=== PATIENT | male | born 1975 | race Caucasian/White ===

== ENCOUNTER → 2019-04-02 12:20 | Outpatient (CLI) | payer BC, SELFPAY | PROVIDERS: Visit Provider Nurse Practitioner Family | DX: G43.119 Migraine with aura, intractable, without status migrainosus (principal); R53.83 Other fatigue; Z86.69 Personal history of other diseases of the nervous system and sense organs | CPT/HCPCS: 94762 ==

== ENCOUNTER 2020-01-26 20:16 | Emergency (ER) | payer OTHER, SELFPAY ==
[2020-01-26 20:18] VITALS: BP 145/96; PULSE 94; RESP 18; TEMP 36.7; O2SAT 98; BMI 32.5
--- NOTE | 2020-01-26 20:23 | XR_ITS ---
PROCEDURE: XR HAND LT MIN 3V Patient Age:44Y CLINICAL INDICATION: crushed ring finger Left hand three views. COMPARISON: No exams were available for comparison FINDINGS: Crush tuft fracture 4th finger distal phalanx/distal tuft. Mild fragmentation is of distal tuft evident with fracture line passing through the base of the tuft nicely seen on lateral projection no significant displacement of fracture fragments but soft tissue swelling at tip of finger but the base of the distal phalanx intact but the remainder of the left ring finger intact. The other fingers and metacarpals and carpals at left hand and wrist intact and unremarkable otherwise IMPRESSION: Crush fracture of distal tuft left ring finger Dictated by: Moses Ruiz MD 01/26/2020 22:01 Electronically signed by Moses Ruiz MD in [place] 01/26/2020 22:01
--- NOTE | 2020-01-26 20:36 | HMH.EDUTC ---
[facility] Disposition Clinical Impression: Closed fracture of tuft of distal phalanx of finger Disposition: Home, Self-Care Condition on Discharge: Good Instructions: How To Perform RICE (Rest, Ice, Compress, Elevate) Additional Instructions: *RICE, Rest the extremity, Ice 15-20 minutes 3-4 times daily, Compress- wear the shan wrap as discussed as much as possible to help reduce swelling and pain, Elevate the extremity when at rest *Shan wrap is for support and help control swelling, use it except in the shower. Be sure that is not to tight but not to loose either *Elevate when resting *Ibuprofen every 6-8 hours as needed for pain an inflammation. If need something more can take Tylenol in between doses of Ibuprofen to help Immediately follow up with your family doctor for new or worsening of symptoms, or no noticeable improvement over the next 3-5 days Call Orthopedic office in the morning for appointment with Dr Reilly Return if needed Straight to ER if any life threatening symptoms Referrals: Coy Vance MD [Primary Care Provider] - As needed Reynaldo Reilly MD [Staff Physician] - Time of Disposition: 20:58 Medical Decision Making - Juan Inquiry Pt receiving controlled substance: No Juan was queried for this patient: No Vital Signs: 01/26/20 20:18 01/26/20 20:56 Temperature 98.1 F 98.1 F Temperature Source Oral Oral Pulse Rate 94 H Pulse Rate [Radial] 94 H Respiratory Rate 18 18 Blood Pressure 145/96 H Blood Pressure [Right Arm] 145/96 H Blood Pressure Mean [Right Arm] 112 Blood Pressure Source Automatic Cuff Blood Pressure Source [Right Arm] Automatic Cuff Blood Pressure Position Sitting Blood Pressure Position [Right Arm] Sitting 02 Sat by Pulse Oximetry 98 Oxygen Delivery Method Room Air Room Air Orders (Tests/Meds): ORDERS Category Date Time Status XR hand LT min 3V Stat Exams 01/26/20 20:23 Taken - Radiology Data #1 Image(s): Hand Image Reviewed: Yes I reviewed the patient's radiology image Closed Distal phalanx fracture of left ring finger - Physician Consults Physician Consulted: Tommie Time: 20:40 Reason -: Orthopedic Eval/Care Comment/Response: Spoke with Dr Reilly and he advised that he would view xray in the morning and bring him into the office Place patient in foam splint, RICE and follow up in the office [facility] HPI - General Stated complaint: smashed finger on L hand Time Seen by Provider: 01/26/20 20:36 Mode of Arrival: Ambulatory Source of Information: Patient Limitations: No Limitations Description of Symptoms (Recalled from Triage Doc. by RN): SMASHED FINGER HEENT Symptoms (Recalled from RN notes): No Resp Symptoms (Recalled from RN notes): No Skin Symptoms (Recalled from RN notes): Yes MS Symptoms (Recalled from RN notes): Yes Functional Status (Recalled from RN notes): WNL - History of Present Illness Provider Complaint: Patient states that about two days ago he was working on his tracker when an approxiately 400lb piece of equiptment fell and smashed his left ring finger. States that ever since he has been having swelling and bruising to the tip of his left ring finger. States that he didnt want to come in and but his made him after bruising and swelling didnt improve - Related Data Previous Rx's Medication Instructions Recorded propranolol 40 mg tablet 40 mg PO BID 30 Days #60 tab 05/20/19 amitriptyline 10 mg tablet 20 mg PO QHS 30 Days #60 tab 11/18/19 ubrogepant 50 mg tablet 50 mg PO .COMPLEX #10 tab 11/18/19 Allergies Allergy/AdvReac Type Severity Reaction Status Date / Time No Known Allergies Allergy Verified 11/18/19 13:56 - Worker's Comp Is this a Worker's Comp case?: No [facility] History - Hepatitis A Screen Drug use history?: No High risk sexual behaviors?: No History of sexually transmitted infection?: No Currently employed?: No Childcare worker?: No Do you have indoor plumbing?: Yes Do you have electrici
[2020-01-26 20:56] VITALS: BP 145/96; PULSE 94; RESP 18; TEMP 36.7; O2SAT 98
== END 2020-01-26 21:00 | disposition home or self-care (01) ==
PROVIDERS: Emergency Provider Nurse Practitioner; PCP Emergency Medicine
DX: S62.665A Nondisplaced fracture of distal phalanx of left ring finger, initial encounter for closed fracture (principal); W30.89XA Contact with other specified agricultural machinery, initial encounter; Y92.79 Other farm location as the place of occurrence of the external cause; I10 Essential (primary) hypertension; Z87.442 Personal history of urinary calculi; G43.709 Chronic migraine without aura, not intractable, without status migrainosus; Z90.49 Acquired absence of other specified parts of digestive tract
CPT/HCPCS: 73130; 99201

== ENCOUNTER → 2020-03-06 13:31 | Outpatient (CLI) | payer OTHER, SELFPAY ==
--- NOTE | 2020-03-06 13:37 | XR_ITS ---
PROCEDURE: XR HAND LT MIN 3V CLINICAL INDICATION: left fourth digit fracture follow up COMPARISON: CR XR HAND LT MIN 3V from 01/26/2020 FINDINGS: Comminuted fracture of the tuft of the distal phalanx of the 4th digit is once again noted. Fracture lines are still visible is somewhat less apparent. The joint spaces are well-preserved. No significant degenerative/arthritic changes. No erosive changes evident. Other findings:None. IMPRESSION: Healing nondisplaced tuft fracture of the distal phalanx of the 4th digit Dictated b Davis Foley MD 03/06/2020 15:48 Davis Foley MD in [place] 03/06/2020 15:48
== END ==
PROVIDERS: PCP Emergency Medicine; Visit Provider Orthopaedic Surgery
DX: S62.639A Displaced fracture of distal phalanx of unspecified finger, initial encounter for closed fracture (principal)
CPT/HCPCS: 73130

== ENCOUNTER → 2020-03-31 11:26 | Outpatient (CLI) | payer OTHER, SELFPAY ==
[2020-04-01 14:05] LABS: Covid-19 Nasal PCR Sendout Lex Positive
== END ==
PROVIDERS: PCP Emergency Medicine; Visit Provider Family Medicine
DX: Z20.828 Contact with and (suspected) exposure to other viral communicable diseases (principal); U07.1 COVID-19
CPT/HCPCS: U0004

== ENCOUNTER 2021-06-15 11:30 | Observation (INO) | payer OTHER, SELFPAY ==
[2021-06-15] VITALS (10 sets, daily range): BP systolic 153–199; BP diastolic 92–118; PULSE 63–89; RESP 18–20; TEMP 36.6–36.8; O2SAT 92–99; BMI 37.3; BMI 37.2; BMI 36.8
--- NOTE | 2021-06-15 11:37 | CT_ITS ---
PROCEDURE: CT ABDOMEN PELVIS W CON CLINICAL INDICATION: abd pain COMPARISON: CT CT ABDOMEN PELVIS W CON from 03/15/2019 TECHNIQUE: IV Contrast: 75ML Isovue 370 Oral Contrast None Axial images obtained with sagittal and coronal reformats. All CT scans at the facility use one or more dose reduction, viz: automated exposure control, ma/kV adjustment per patient size (including targeted exams where dose is matched to indication, i.e. head), or iterative reconstruction technique. FINDINGS: LOWER THORAX: No acute finding ABDOMEN & PELVIS: The liver, spleen, adrenal glands, pancreas, and kidneys have an unremarkable appearance. No renal or ureteral calculi. No hydronephrosis or renal mass. No intestinal obstruction or free air. No evidence of appendicitis. There are few colonic diverticula. No evidence of diverticulitis. There is mild colonic wall thickening at the rectal area and rectosigmoid junction. This is nonspecific and may only be related to nondistention. Colitis/proctitis is also consideration. There are few scattered small mesenteric nodes with small nodes in the periportal region not significantly changed. No acute bony findings. IMPRESSION: Mild thickening of the rectum and sigmoid rectal area which could be due to nondistention or mild colitis/proctitis Otherwise negative Dictated by: Davis Foley MD 06/15/2021 13:45 Davis Foley MD in [place] 06/15/2021 13:45
[2021-06-15 11:52] LABS: Basophils # 0.1 K/mm3 (0-0.2); Basophils % 1.1 % (0.1-2.0); Eosinophils # 0.4 K/mm3 (0.0-0.4); Eosinophils % 2.9 % (0.1-12.0); Hematocrit 45.8 % (42.0-52.0); Hemoglobin 15.6 g/dL (14.1-18.0); Lymphocytes # 3.2 K/mm3 (0.7-4.5); Mean Corpuscular Hemoglobin 31.5 pg (27.0-31.2); Mean Corpuscular Volume 92.4 fl (80-94); Monocytes # 0.8 K/mm3 (0.1-1.0); Monocytes % 5.8 % (1.7-9.3); Neutrophils # 8.3 K/mm3 (1.8-7.8); Neutrophils % 65.1 % (37.0-80.0); Platelet Count 375 K/mm3 (142-424); Red Blood Count 4.96 M/mm3 (4.60-6.20); Red Cell Distribution Width 12.9 % (11.5-17.5); White Blood Count 12.7 K/mm3 (4.8-10.8)
[2021-06-15 12:12] LABS: Alanine Aminotransferase 42 U/L (12-78); Albumin Level 4.6 g/dl (3.5-5.0); Albumin/Globulin Ratio 1.4 (1.1-1.8); Alkaline Phosphatase 101 U/L (38-126); Amylase 79 U/L (30-110); Anion Gap 15.8 mEq/L (5-15); Aspartate Amino Transferase 32 U/L (17-59); Bilirubin,Total 0.4 mg/dl (0.2-1.3); Blood Urea Nitrogen 16 mg/dl (9-20); Carbon Dioxide 25 mmol/L (22.0-30.0); Chloride 106 mmol/L (98-107); Creatinine Clearance Estimated 183 mL/min (50-200); Estimated Glomerular Filt Rate 91 ml/min (>60); GFR (African American) 110 ML/MIN (>60); Globulin 3.4 g/dL (1.3-3.2); Glucose 133 mg/dl (74-100); Lipase 83 U/L (23-300); Potassium 3.8 mmoL/L (3.5-5.1); Sodium 143 mmol/L (136-145)
[2021-06-15 12:14] LABS: Erythrocyte Sedimentation Rate 12 mm/hr (0-15)
[2021-06-15 12:17] LABS: C-Reactive Protein 7.1 mg/L (0-4)
--- NOTE | 2021-06-15 13:01 | HMH.EDGENADL ---
ED Disposition Clinical Impression: Acute cholecystitis Disposition: Admitted as Observation Condition on Discharge: Fair - Critical Care Critical Care Time: No Attestation: On 06/15/21, the high probability of a clinically significant, sudden or life threatening deterioration of the following system(s) required my full and direct attention, intervention and personal management. The time I documented below is in addition to time spent performing reported procedures but includes the following listed in this critical care notation. Medical Decision Making - Medical Records Medical records reviewed: Yes: I reviewed the patient's medical records. - Juan Inquiry Pt receiving controlled substance: Yes Juan was queried for this patient: Yes Risks and benefits of using a controlled substance: were not discussed with pt by me Vital Signs: 06/15/21 11:35 Temperature 98.2 F Temperature Source Oral Pulse Rate [Radial] 71 Respiratory Rate 19 Blood Pressure [Right Arm] 169/107 H Blood Pressure Mean [Right Arm] 127 02 Sat by Pulse Oximetry 97 - Lab Data Lab Results 06/15/21 11:45: WBC 12.7 H, RBC 4.96, Hgb 15.6, Hct 45.8, MCV 92.4, MCH 31.5 H, MCHC 34.0, RDW 12.9, Plt Count 375, MPV 8.0, Neut % (Auto) 65.1, Lymph % (Auto) 25.0, [place] % (Auto) 5.8, Eos % (Auto) 2.9, Baso % (Auto) 1.1, Neut # (Auto) 8.3 H, Lymph # (Auto) 3.2, [place] # (Auto) 0.8, Eos # (Auto) 0.4, Baso # (Auto) 0.1 06/15/21 11:45: Sodium 143, Potassium 3.8, Chloride 106, Carbon Dioxide 25, Anion Gap 15.8 H, BUN 16, Creatinine 0.90, Estimated Creat Clear 183, Estimated GFR 91, Est GFR ( Amer) 110, Glucose 133 H, Calcium 9.0, Total Bilirubin 0.4, AST 32, ALT 42, Alkaline Phosphatase 101, C-Reactive Protein 7.1 H, Total Protein 8.0, Albumin 4.6, Globulin 3.4 H, Albumin/Globulin Ratio 1.4, Amylase 79, Lipase 83 06/15/21 11:45: ESR 12 Result diagrams: 06/15/21 11:45 06/15/21 11:45 Orders (Tests/Meds): ED MEDICATIONS Generic Name Dose Route Start Last Admin Trade Name Freq PRN Reason Stop Dose Admin Piperacillin Sod/Tazobactam 100 mls @ 200 mls/hr 06/15/21 15:30 06/15/21 15:49 Sod 4.5 gm/ Sodium Chloride IV 06/29/21 15:29 200 mls/hr Q8H CRIS Administration Sodium Chloride 10 ml 06/15/21 12:06 Sodium Chloride 0.9% 10ml Vial IV 07/15/21 12:05 NEEDED PRN dilute protonix Discontinued Medications Generic Name Dose Route Start Last Admin Trade Name Freq PRN Reason Stop Dose Admin Hydromorphone HCl 1 mg 06/15/21 13:07 06/15/21 13:16 Hydromorphone 2mg/Ml Syringe IV 06/15/21 13:08 1 mg ONCE ONE Administration Hydromorphone HCl 1 mg 06/15/21 14:49 06/15/21 14:53 Hydromorphone 2mg/Ml Syringe IV 06/15/21 14:50 1 mg ONCE ONE Administration Sodium Chloride 1,000 mls @ 999 mls/hr 06/15/21 11:45 06/15/21 11:44 Sod Chlor 0.9% 1000ml Bag IV 06/15/21 12:45 999 mls/hr .Q1H1M CRIS Administration Iopamidol 75 ml 06/15/21 12:38 06/15/21 12:42 Iopamidol-370 (76%);100ml Bottle IV 06/15/21 12:39 75 ml ONCE ONE Administration Ketorolac Tromethamine 30 mg 06/15/21 11:38 06/15/21 11:44 Ketorolac 30mg/Ml Vial IV 06/15/21 11:39 30 mg ONCE ONE Administration Ondansetron HCl 4 mg 06/15/21 11:38 06/15/21 11:44 Ondansetron 4mg/2ml Vial IV 06/15/21 11:39 4 mg ONCE ONE Administration Pantoprazole Sodium 40 mg 06/15/21 12:06 06/15/21 12:09 Pantoprazole 40mg Vial IV 06/15/21 12:07 40 mg ONCE ONE Administration Promethazine HCl 25 mg 06/15/21 12:05 06/15/21 12:08 Promethazine Hcl 25mg/Ml 1ml Vial IV 06/15/21 12:06 25 mg ONCE ONE Administration Promethazine HCl 12.5 mg 06/15/21 12:05 06/15/21 12:09 Promethazine Hcl 25mg/Ml 1ml Vial IV 06/15/21 12:06 Not Given ONCE ONE Sodium Chloride 25 ml 06/15/21 12:05 06/15/21 12:08 Sodium Chloride 0.9% 25ml Bag IV 06/15/21 12:06 25 ml ONCE ONE Administration Sodium Chloride 10 ml 06/15/21 1
--- NOTE | 2021-06-15 14:08 | US_ITS ---
PROCEDURE: US GALLBLADDER CLINICAL INDICATION: RUQ pain COMPARISON: CT CT ABDOMEN PELVIS W CON from 06/15/2021 FINDINGS: Pancreas: Pancreas is not well delineated due to overlying bowel gas. Liver: Diffuse fatty liver markedly limiting resolution.. There is appropriate direction of blood flow within a non dilated portal vein. Right kidney: Unremarkable appearing. No hydronephrosis. Gallbladder: Gallbladder poorly imaged. There does appear to be some layering sludge in the gallbladder. No obvious shadowing stones are demonstrated. Common bile duct is normal at 2 mm. The no gallbladder wall thickening, or pericholecystic fluid IMPRESSION: Somewhat limited study. Diffuse fatty liver with gallbladder sludge. Dictated by: Davis Foley MD 06/16/2021 09:24 Davis Foley MD in [place] 06/16/2021 09:24
--- NOTE | 2021-06-15 15:23 | PC.NURSE ---
DR HUITRON SPEAKING WITH DR HOPE
[2021-06-15 16:23] LABS: Coronavirus 19, PCR Not Detected (NotDetected); Influenza A, PCR Not Detected (NotDetected); Influenza B, PCR Not Detected (NotDetected)
--- NOTE | 2021-06-15 17:02 | PC.NURSE ---
report called to leena galindo on second floor at this time, states she will send staff down to get pt
--- NOTE | 2021-06-15 17:14 | HMH.GSCON ---
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 He presented with complaints of right-sided abdominal pain onset approximately 9 AM to 10 AM this morning with associated nausea and vomiting. Character of the pain is described as a hot poker . Radiation to his back. Patient had eaten eggs for breakfast at [employer] approximately 6 AM. Evaluation emergency department included routine blood work which did reveal a slightly above the normal white blood cell count. Liver function tests and amylase and lipase were within normal limits. CT scan relatively unremarkable other than possible distal colon thickening versus merely nondistention. Clinical scenario is consistent with possible gallbladder etiology and he therefore underwent ultrasound. Preliminary results reveal thick layering sludge. Due to the patient's refractory symptoms of pain he was admitted for inpatient management and surgical consultation. Of note, the patient did undergo gallbladder ultrasound 2 years ago which was normal. Patient does drink alcohol. He is a prior smoker. He denies history of ulcer disease, liver disease, or pancreas. Review of Systems - Review of Systems Review of systems:: pertinent systems reviewed and negative unless documented below [facility] History I have reviewed the patient's past medical history: Yes Medical History: Reports:: Cancer, Hypertension, Kidney Stones, Migraine, Palpitations Denies:: Diabetes Mellitus Type 1, Diabetes Mellitus Type 2, MRSA *Have you ever received a pneumonia vaccine?: No *Have you received a flu vaccine this season?: No Laterality Cases: Right: Arthroscopy Knee, Other Other Surgeries: Yes: Appendectomy, Ureter Stent Amputation: No Fractures: No - *Social History Smoking Status: Former smoker Alcohol Intake: never Alcohol Intake Frequency:: a few times a week Substance Use Type: denies use *Occupational Status:: employed Housing: house Household Members: other *Travel in the last 8 weeks: None Family Hx:: Substance abuse Meds Home Medications Medication Instructions Recorded Confirmed Type propranolol 80 mg capsule,24 80 mg PO DAILY #90 cap 08/20/20 11/19/20 Rx hr,extended release ubrogepant 100 mg tablet 100 mg PO ONCE PRN #10 tab 08/20/20 11/19/20 Rx amitriptyline 10 mg tablet 10 mg PO QHS tab 11/19/20 History galcanezumab-gnlm 120 mg/mL See Rx Instructions .ROUTE 04/15/21 Rx subcutaneous pen injector .COMPLEX #1 ml Allergies Allergy/AdvReac Type Severity Reaction Status Date / Time No Known Allergies Allergy Verified 11/19/20 07:48 Exam Vital signs and Labs for Last 24 Hours: Temp Pulse Resp BP Pulse Ox 98.2 F 63 18 153/92 H 94 L 06/15/21 11:35 06/15/21 17:01 06/15/21 17:01 06/15/21 17:01 06/15/21 17:01 Laboratory Results - last 24 hr 06/15/21 11:45: WBC 12.7 H, RBC 4.96, Hgb 15.6, Hct 45.8, MCV 92.4, MCH 31.5 H, MCHC 34.0, RDW 12.9, Plt Count 375, MPV 8.0, Neut % (Auto) 65.1, Lymph % (Auto) 25.0, [place] % (Auto) 5.8, Eos % (Auto) 2.9, Baso % (Auto) 1.1, Neut # (Auto) 8.3 H, Lymph # (Auto) 3.2, [place] # (Auto) 0.8, Eos # (Auto) 0.4, Baso # (Auto) 0.1 06/15/21 11:45: Sodium 143, Potassium 3.8, Chloride 106, Carbon Dioxide 25, Anion Gap 15.8 H, BUN 16, Creatinine 0.90, Estimated Creat Clear 183, Estimated GFR 91, Est GFR ( Amer) 110, Glucose 133 H, Calcium 9.0, Total Bilirubin 0.4, AST 32, ALT 42, Alkaline Phosphatase 101, C-Reactive Protein 7.1 H, Total Protein 8.0, Albumin 4.6, Globulin 3.4 H, Albumin/Globulin Ratio 1.4, Amylase 79, Lipase 83 06/15/21 11:45: ESR 12 06/15/21 16:15: SARS-CoV-2 (PCR) Not detected, Influenza A Untype (PCR) Not detected, Influenza Type B (PCR) Not detected I & O for Last 24 hours: Intake & Output 06/13/21 06/14/21 06/15/21 06/16/21 11:59 11:59 11:59 11:59 W
--- NOTE | 2021-06-15 18:11 | PC.NURSE ---
Patient is an admit from the ER to room 210. Patient is non tele and on room air. Patient is up ad-eden. Alert and oriented times 4. Patient is complaining of upper right quandrant pain. See mar. Plan of care, patient to be NPO at midnight for possible gallbladder surgery. Bed in lowest position and phone and call light in reach. Will continue to monitor.
--- NOTE | 2021-06-15 20:51 | HMH.HP ---
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 In the emergency room his work-up included a CT of the abdomen and an ultrasound of his right upper quadrant. Gallbladder was filled with thickened sludge, Hoffman's sign is positive, and constellation of features suggest an acute cholecystitis. Surgery service was consulted, and Dr. Boothe and actively plans on inpatient to the operating room tomorrow. He is currently receiving IV fluid and antibiotics. [facility] History Medical History: Reports:: Cancer, Hypertension, Kidney Stones, Migraine, Palpitations Denies:: Diabetes Mellitus Type 1, Diabetes Mellitus Type 2, MRSA *Have you ever received a pneumonia vaccine?: No *Have you received a flu vaccine this season?: Yes Laterality Cases: Right: Arthroscopy Knee, Other Other Surgeries: Yes: Appendectomy, Ureter Stent Amputation: No Fractures: No - *Social History Smoking Status: Former smoker Alcohol Intake: current Alcohol Intake Frequency:: a few times a week Substance Use Type: denies use *Occupational Status:: employed Housing: house Household Members: other *Travel in the last 8 weeks: None Family Hx:: Substance abuse Review of Systems - Constitutional Reports anorexia - Eyes Denies change in vision - ENT Denies abnormal hearing - *Cardiovascular Denies chest pain - *Respiratory Denies chest congestion - *Gastrointestinal Reports abdominal pain, Reports belching, Reports bloating, Reports nausea - *Genitourinary Denies difficulty urinating - *Musculoskeletal Denies abnormal walking - Integumentary/Breasts Denies yellowing of the skin - *Neurologic Denies abnormal speech, Denies behavioral changes, Denies other visual disturbances - Psychiatric Denies confusion - Endocrine Denies cold intolerance, Denies heat intolerance, Denies rapid, pounding, or irregular heartbeat - Hematologic/Lymphatic Denies easy bleeding, Denies easy bruising - Allergic/Immunologic Denies hives Meds Home Medications Medication Instructions Recorded Confirmed Type propranolol 80 mg capsule,24 80 mg PO DAILY #90 cap 08/20/20 11/19/20 Rx hr,extended release ubrogepant 100 mg tablet 100 mg PO ONCE PRN #10 tab 08/20/20 11/19/20 Rx amitriptyline 10 mg tablet 10 mg PO QHS tab 11/19/20 History galcanezumab-gnlm 120 mg/mL See Rx Instructions .ROUTE 04/15/21 Rx subcutaneous pen injector .COMPLEX #1 ml Allergies Allergy/AdvReac Type Severity Reaction Status Date / Time No Known Allergies Allergy Verified 06/15/21 17:51 Exam Vital signs and Labs for Last 24 Hours: Temp Pulse Resp BP Pulse Ox 98 F 70 18 199/106 H 97 06/15/21 19:20 06/15/21 19:20 06/15/21 19:20 06/15/21 19:20 06/15/21 19:20 Laboratory Results - last 24 hr 06/15/21 11:45: WBC 12.7 H, RBC 4.96, Hgb 15.6, Hct 45.8, MCV 92.4, MCH 31.5 H, MCHC 34.0, RDW 12.9, Plt Count 375, MPV 8.0, Neut % (Auto) 65.1, Lymph % (Auto) 25.0, [place] % (Auto) 5.8, Eos % (Auto) 2.9, Baso % (Auto) 1.1, Neut # (Auto) 8.3 H, Lymph # (Auto) 3.2, [place] # (Auto) 0.8, Eos # (Auto) 0.4, Baso # (Auto) 0.1 06/15/21 11:45: Sodium 143, Potassium 3.8, Chloride 106, Carbon Dioxide 25, Anion Gap 15.8 H, BUN 16, Creatinine 0.90, Estimated Creat Clear 183, Estimated GFR 91, Est GFR ( Amer) 110, Glucose 133 H, Calcium 9.0, Total Bilirubin 0.4, AST 32, ALT 42, Alkaline Phosphatase 101, C-Reactive Protein 7.1 H, Total Protein 8.0, Albumin 4.6, Globulin 3.4 H, Albumin/Globulin Ratio 1.4, Amylase 79, Lipase 83 06/15/21 11:45: ESR 12 06/15/21 16:15: SARS-CoV-2 (PCR) Not detected, Influenza A Untype (PCR) Not detected, Influenza Type B (PCR) Not detected I & O for Last 24 hours: Intake & Output 06/12/21 06/13/21 06/14/21 06/15/21 23:59 23
--- NOTE | 2021-06-15 22:39 | HMH.PHAVTE ---
[facility] Pharmacy VTE Monitoring - Patient Demographics Admission date: 06/15/21 Report Date: 06/15/21 Time: 22:39 Allergies/Adverse Reactions: Patient Allergies No Known Allergies Allergy (Verified 06/15/21 17:51) Height: 1.83 m Weight: 123.122 kg Patient Problems: Current Active Problems Abdominal pain (Acute) Acute cholecystitis (Acute) - VTE Risk Labs: VTE Related Lab Results Hgb 15.6 g/dL (14.1-18.0) 06/15/21 11:45 Hct 45.8 % (42.0-52.0) 06/15/21 11:45 Plt Count 375 K/mm3 (142-424) 06/15/21 11:45 BUN 16 mg/dl (9-20) 06/15/21 11:45 Creatinine 0.90 mg/dl (0.66-1.25) 06/15/21 11:45 Estimated Creat Clear 183 mL/min (50-200) 06/15/21 11:45 Was VTE Risk Assessment Performed: Yes VTE Risk Level: Low Risk Clinical Trial Participant: No - Prophylaxis VTE Prophylaxis Ordered?: Yes Types of VTE Prophylaxis: TEDS Knee High
[2021-06-16] VITALS (24 sets, daily range): BP systolic 113–172; BP diastolic 73–105; PULSE 84–112; RESP 12–20; TEMP 36.3–38.1; O2SAT 92–100; BMI 36.8
[2021-06-16 07:18] LABS: Basophils # 0.1 K/mm3 (0-0.2); Basophils % 0.6 % (0.1-2.0); Eosinophils # 0.2 K/mm3 (0.0-0.4); Eosinophils % 1.3 % (0.1-12.0); Hematocrit 42.5 % (42.0-52.0); Hemoglobin 14.8 g/dL (14.1-18.0); Lymphocytes # 1.6 K/mm3 (0.7-4.5); Lymphocytes % 10.5 % (10-50); Mean Corpuscular HGB Conc 34.8 g/dL (31.8-35.4); Mean Corpuscular Hemoglobin 31.1 pg (27.0-31.2); Mean Corpuscular Volume 89.3 fl (80-94); Mean Platelet Volume 7.7 fl (7.4-10.4); Monocytes # 1.1 K/mm3 (0.1-1.0); Monocytes % 7.1 % (1.7-9.3); Neutrophils # 12.4 K/mm3 (1.8-7.8); Neutrophils % 80.5 % (37.0-80.0); Platelet Count 322 K/mm3 (142-424); Red Blood Count 4.76 M/mm3 (4.60-6.20); Red Cell Distribution Width 13.3 % (11.5-17.5); White Blood Count 15.4 K/mm3 (4.8-10.8)
[2021-06-16 07:42] LABS: Alanine Aminotransferase 46 U/L (12-78); Albumin Level 4.2 g/dl (3.5-5.0); Albumin/Globulin Ratio 1.4 (1.1-1.8); Alkaline Phosphatase 87 U/L (38-126); Anion Gap 13.5 mEq/L (5-15); Aspartate Amino Transferase 41 U/L (17-59); Blood Urea Nitrogen 10 mg/dl (9-20); Calcium 8.4 mg/dl (8.4-10.2); Carbon Dioxide 26 mmol/L (22.0-30.0); Chloride 101 mmol/L (98-107); Creatinine Clearance Estimated 181 mL/min (50-200); Estimated Glomerular Filt Rate 91 ml/min (>60); GFR (African American) 110 ML/MIN (>60); Glucose 120 mg/dl (74-100); Potassium 3.5 mmoL/L (3.5-5.1); Sodium 137 mmol/L (136-145); Total Protein,Serum 7.2 g/dl (6.3-8.2)
--- NOTE | 2021-06-16 07:43 | HMH.PHAINT ---
MEDICATION RECONCILIATION COMPLETED ON PATIENT USING EXTERNAL FILL HISTORY FROM PHARMACY. -WILFRED HAZEL, [place]
[2021-06-16 07:53] LABS: MANUAL DIFFERENTIAL MANUAL DIFFERENTIAL (MANUAL DIFF)
[2021-06-16 08:59] LABS: Lymphocytes % 4 % (10-50); Monocytes % 5 % (2-9); Neutrophils % 91 % (42-76); Platelet Estimate Normal; Total Cells Counted 100
--- NOTE | 2021-06-16 09:37 | P.PN_ITS ---
Internal Medicine - PN: Subj *Date: 06/16/21 *Time: 08:15 Interval history: pt laying in bed. Exam Vital signs and Labs for Last 24 Hours: Temp Pulse Resp BP Pulse Ox 99.2 F 112 H 15 160/105 H 94 L 06/16/21 08:00 06/16/21 08:00 06/16/21 08:00 06/16/21 08:00 06/16/21 08:00 Laboratory Results - last 24 hr 06/15/21 11:45: WBC 12.7 H, RBC 4.96, Hgb 15.6, Hct 45.8, MCV 92.4, MCH 31.5 H, MCHC 34.0, RDW 12.9, Plt Count 375, MPV 8.0, Neut % (Auto) 65.1, Lymph % (Auto) 25.0, [place] % (Auto) 5.8, Eos % (Auto) 2.9, Baso % (Auto) 1.1, Neut # (Auto) 8.3 H, Lymph # (Auto) 3.2, [place] # (Auto) 0.8, Eos # (Auto) 0.4, Baso # (Auto) 0.1 06/15/21 11:45: Sodium 143, Potassium 3.8, Chloride 106, Carbon Dioxide 25, Anion Gap 15.8 H, BUN 16, Creatinine 0.90, Estimated Creat Clear 183, Estimated GFR 91, Est GFR ( Amer) 110, Glucose 133 H, Calcium 9.0, Total Bilirubin 0.4, AST 32, ALT 42, Alkaline Phosphatase 101, C-Reactive Protein 7.1 H, Total Protein 8.0, Albumin 4.6, Globulin 3.4 H, Albumin/Globulin Ratio 1.4, Amylase 79, Lipase 83 06/15/21 11:45: ESR 12 06/15/21 16:15: SARS-CoV-2 (PCR) Not detected, Influenza A Untype (PCR) Not detected, Influenza Type B (PCR) Not detected 06/16/21 06:33: WBC 15.4 H, RBC 4.76, Hgb 14.8, Hct 42.5, MCV 89.3, MCH 31.1, MCHC 34.8, RDW 13.3, Plt Count 322, MPV 7.7, Neut % (Auto) 80.5 H, Lymph % (Auto) 10.5, [place] % (Auto) 7.1, Eos % (Auto) 1.3, Baso % (Auto) 0.6, Neut # (Auto) 12.4 H, Lymph # (Auto) 1.6, [place] # (Auto) 1.1 H, Eos # (Auto) 0.2, Baso # (Auto) 0.1, Total Counted 100, Neutrophils % (Manual) 91 H, Lymphocytes % (Manual) 4 L, Monocytes % (Manual) 5, Platelet Estimate Normal 06/16/21 06:33: Sodium 137, Potassium 3.5, Chloride 101, Carbon Dioxide 26, Anion Gap 13.5, BUN 10 D, Creatinine 0.90, Estimated Creat Clear 181, Estimated GFR 91, Est GFR ( Amer) 110, Glucose 120 H, Calcium 8.4, Total Bilirubin 1.0, AST 41 D, ALT 46, Alkaline Phosphatase 87, Total Protein 7.2, Albumin 4.2, Globulin 3.0, Albumin/Globulin Ratio 1.4 I & O for Last 24 hours: Intake & Output 06/13/21 06/14/21 06/15/21 06/16/21 11:59 11:59 11:59 11:59 Intake Total 240 / 240 Balance 240 / 240 Weight 275 lb 271 lb 8 oz - Constitutional no acute distress - *Routine HEENT Exam Head: Present: normocephalic Eye: Present: PERRL ENT: Present: mucous membranes moist - *Routine Neck Exam Present: supple. Absent: lymphadenopathy - *Routine Respiratory Exam Present: CTA bilaterally - *Routine Cardiovascular Exam Present: RRR - *Routine Abdominal Exam Present: soft, normoactive bowel sounds, tenderness - *Routine Extremities Exam Absent: cyanosis, clubbing, edema - *Routine Skin Exam Present: warm. Absent: rash - *Routine Neurological Exam Present: alert, oriented X3 Assessment and Plan (1) Acute cholecystitis Status: Acute Category: Medical Code(s): K81.0 - Acute cholecystitis (2) Abdominal pain Status: Acute Qualifiers: Abdominal location: right upper quadrant Qualified Code(s): R10.11 - Right upper quadrant pain Category: Medical Code(s): R10.9 - Unspecified abdominal pain - Assessment and plan all Dx Assessment and Plan for all problems:: rounded with dr triston all orders per dr valentine surgery today for gallbladder removal
--- NOTE | 2021-06-16 13:18 | HMH.ANESCL ---
[facility] Anesthesia Checklist - Patient Identification Patient Identification: Arm Band, Verbal (Name & ) - Structural Data Admitted From: Inpatient Planned Operative Procedure/s: Laparascopic Cholecystectomy Consent for Planned Operative Procedure(s) Verified: Yes Verified Documents: Surgical Consent - NPO Status Verified Time NPO: 00:00 - Cardiovascular Assessment Heart Sounds: S1 & S2 - Airway Assessment C-Spine Mobility Assessed: Yes TMJ Mobility Assessed: Yes Dentition: Good Dentition - Neurological Assessment Level of Consciousness: Awake, Alert, Appropriate - Anesthesia Plan Anesthesia Risk discussed: Yes ASA Class: II Anesthesia Type: General [facility] History Medical History: Reports:: Cancer, Hypertension, Kidney Stones, Migraine, Palpitations Denies:: Diabetes Mellitus Type 1, Diabetes Mellitus Type 2, MRSA *Have you ever received a pneumonia vaccine?: No *Have you received a flu vaccine this season?: Yes Anesthesia experience/problems:: none Laterality Cases: Right: Arthroscopy Knee, Other Other Surgeries: Yes: Appendectomy, Ureter Stent Amputation: No Fractures: No - *Social History Smoking Status: Former smoker Alcohol Intake: current Alcohol Intake Frequency:: a few times a week Substance Use Type: denies use *Occupational Status:: employed Housing: house Household Members: other *Travel in the last 8 weeks: None Family Hx:: Substance abuse
--- NOTE | 2021-06-16 14:20 | PC.NURSE ---
Pt in surgery at this time.
--- NOTE | 2021-06-16 15:39 | HMH.OPNOTE ---
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 He presented with complaints of right-sided abdominal pain onset approximately 9 AM to 10 AM yesterday morning with associated nausea and vomiting. Character of the pain is described as a hot poker . Radiation to his back. Patient had eaten eggs for breakfast at [employer] approximately 6 AM yesterday. He was seen and evaluated in the emergency department yesterday afternoon. Evaluation emergency department included routine blood work which did reveal a slightly above the normal white blood cell count. Liver function tests and amylase and lipase were within normal limits. CT scan relatively unremarkable other than possible distal colon thickening versus merely nondistention. Clinical scenario is consistent with possible gallbladder etiology and he therefore underwent ultrasound. Preliminary results reveal thick layering sludge. Due to the patient's refractory symptoms of pain he was admitted for inpatient management and surgical consultation. Of note, the patient did undergo gallbladder ultrasound 2 years ago which was normal. Due to the symptomatology he was treated for clinical acute cholecystitis. Arrangements were made for cholecystectomy. Operative findings:: Patient had a severely inflamed thickened acutely inflamed gallbladder. There was some fibrinopurulent exudate surrounding the gallbladder. There was evidence of possible partial thickness necrosis without perforation. There was moderate sized stone impacted in the neck of the gallbladder. He had some appreciable fatty infiltration of the liver. Operative note:: Patient was taken to the operating room. He was given preoperative intravenous antibiotics. In the operating room he was placed in a supine position. General anesthesia was induced via endotracheal tube. Abdomen was prepped and draped in the standard surgical fashion. Subumbilical skin incision was made and while performing abdominal wall lift Veress needle was inserted. CO2 pneumoperitoneum was achieved to 15 mmHg. 11 mm optical trocar was inserted at the umbilicus. Intraperitoneal contents were visualized. He was positioned in reverse Trendelenburg left side down. A couple 5 mm trochars were inserted in the right upper abdomen. 10 mm trocar was inserted in the epigastrium. Initially liver and gallbladder were obscured with omentum. This was swept inferiorly. Gallbladder was identified and found to be acutely inflamed with thickening and fibrinopurulent exudate. Gallbladder was thickened and somewhat tense. Using the laparoscopic aspirator thick biliary sludge was suctioned from the gallbladder. Gallbladder was grasped retracted anteriorly. Blunt dissection was carried out. Please note that due to the elongated nature of the gallbladder and significant inflammatory response around the yusra hepatis ultimately 0 degree laparoscope was replaced with 45 degree laparoscope to allow for visualization. Abdominal pressure was also increased to 20 mmHg to allow for better visualization. Very prolonged dissection was carried out as there was intense inflammatory response around the neck of the gallbladder and yusra hepatis. Ultimately the cystic duct was identified and isolated. Cystic duct was multiply clipped and sharply divided. Cystic artery was carefully coagulated with NATE ultrasonic harmonic adali. The gallbladder was dissected free from the liver in a retrograde fashion with combination of NATE ultrasonic robotic adali with some blunt dissection due to the significant inflammatory response and some use of l
--- NOTE | 2021-06-16 15:49 | HMH.ANESI ---
[facility] Anesthesia Record Part I Intake, IV Amount: 600 Estimated blood loss (mL): 20 Urine output (mL): 0 Blood Pressure: 144/79 SaO2: 92 Pulse Rate: 84 Respiratory Rate: 20 Temperature: 97.8 F Patient is:: Drowsy Stable to PACU at:: 15:43
--- NOTE | 2021-06-16 19:40 | HMH.ANESII ---
[facility] Anesthesia Record Part II Discharge Time: 16:33 Destination: inpatient PACU nurse assessment reviewed?: Yes Patient Condition:: Good Anesthesia Complications:: None none Swallowing reflex intact?: Yes Cyanosis?: No Blood Pressure: 137/94 Pulse Rate: 98 Temperature: 97.3 F Mental Status: Alert & Oriented Pain level:: 3 Nausea and/or vomitting:: None Intake, IV Amount: 0
--- NOTE | 2021-06-16 19:59 | PC.NURSE ---
No acute changes since coming back from surgery. PRN tylenol given r/t fever of 100.6. Temp 99.4 orally when last checked. VSS. Dsgs cdi to abd 4 incisional dsgs.
[2021-06-17 05:00] VITALS: BMI 37.0
--- NOTE | 2021-06-17 05:15 | PC.NURSE ---
pt has rested most of this shift. c/o pain X2. pain medication given per SEP w/ good effectiveness. has remained afebrile. minimal serosanguineous drainage noted from naval dressing. all 4 dressings remain intact. able to ambulate to the bathroom independently. he has been on room air this shift with O2>90%. remains on full liquid diet.
--- NOTE | 2021-06-17 06:39 | HMH.GSPN ---
Subjective Patient reports: no new complaints, feels better (He is a bit sore from the surgery ) Progress Note: A&P (1) Acute cholecystitis Status: Acute Assessment and plan: Overall, doing well status post laparoscopic cholecystectomy. Increase ambulation Follow-up morning labs Possible discharge home soon with close outpatient follow-up (2) Abdominal pain Status: Acute Exam Vital signs and Labs for Last 24 Hours: Temp Pulse Resp BP Pulse Ox 98.4 F 96 H 16 113/84 94 L 06/16/21 23:20 06/16/21 23:20 06/16/21 23:20 06/16/21 23:20 06/16/21 23:20 Laboratory Results - last 24 hr 06/16/21 06:33: WBC 15.4 H, RBC 4.76, Hgb 14.8, Hct 42.5, MCV 89.3, MCH 31.1, MCHC 34.8, RDW 13.3, Plt Count 322, MPV 7.7, Neut % (Auto) 80.5 H, Lymph % (Auto) 10.5, [place] % (Auto) 7.1, Eos % (Auto) 1.3, Baso % (Auto) 0.6, Neut # (Auto) 12.4 H, Lymph # (Auto) 1.6, [place] # (Auto) 1.1 H, Eos # (Auto) 0.2, Baso # (Auto) 0.1, Total Counted 100, Neutrophils % (Manual) 91 H, Lymphocytes % (Manual) 4 L, Monocytes % (Manual) 5, Platelet Estimate Normal 06/16/21 06:33: Sodium 137, Potassium 3.5, Chloride 101, Carbon Dioxide 26, Anion Gap 13.5, BUN 10 D, Creatinine 0.90, Estimated Creat Clear 181, Estimated GFR 91, Est GFR ( Amer) 110, Glucose 120 H, Calcium 8.4, Total Bilirubin 1.0, AST 41 D, ALT 46, Alkaline Phosphatase 87, Total Protein 7.2, Albumin 4.2, Globulin 3.0, Albumin/Globulin Ratio 1.4 I & O for Last 24 hours: Intake & Output 06/14/21 06/15/21 06/16/21 06/17/21 11:59 11:59 11:59 11:59 Intake Total 240 / 240 600 / 600 Balance 240 / 240 600 / 600 Weight 275 lb 271 lb 8 oz 274 lb - Constitutional no acute distress - *Routine Respiratory Exam Absent: respiratory distress - *Routine Cardiovascular Exam Present: RRR - *Routine Abdominal Exam Comments: Dressings intact. No spreading cellulitis.
[2021-06-17 07:23] LABS: Basophils % 0.2 % (0.1-2.0); Eosinophils % 0.2 % (0.1-12.0); Hematocrit 41.9 % (42.0-52.0); Hemoglobin 14.2 g/dL (14.1-18.0); Lymphocytes # 1.5 K/mm3 (0.7-4.5); Lymphocytes % 8.5 % (10-50); Mean Corpuscular Hemoglobin 31.3 pg (27.0-31.2); Mean Platelet Volume 8.1 fl (7.4-10.4); Monocytes % 5.5 % (1.7-9.3); Neutrophils # 15.5 K/mm3 (1.8-7.8); Neutrophils % 85.6 % (37.0-80.0); Platelet Count 358 K/mm3 (142-424); Red Blood Count 4.56 M/mm3 (4.60-6.20); Red Cell Distribution Width 13.1 % (11.5-17.5); White Blood Count 18.1 K/mm3 (4.8-10.8)
[2021-06-17 07:26] LABS: MANUAL DIFFERENTIAL MANUAL DIFFERENTIAL (MANUAL DIFF)
[2021-06-17 07:43] LABS: Anion Gap 11.9 mEq/L (5-15); Blood Urea Nitrogen 12 mg/dl (9-20); Calcium 8.5 mg/dl (8.4-10.2); Carbon Dioxide 26 mmol/L (22.0-30.0); Chloride 104 mmol/L (98-107); Creatinine Clearance Estimated 164 mL/min (50-200); Estimated Glomerular Filt Rate 81 ml/min (>60); GFR (African American) 98 ML/MIN (>60); Glucose 125 mg/dl (74-100); Potassium 3.9 mmoL/L (3.5-5.1); Sodium 138 mmol/L (136-145)
[2021-06-17 07:44] VITALS: BP 125/73; PULSE 94; RESP 16; TEMP 37.1; O2SAT 95
[2021-06-17 08:40] LABS: Lymphocytes % 10 % (10-50); Monocytes % 7 % (2-9); Neutrophils % 83 % (42-76); Total Cells Counted 100
[2021-06-17 08:41] LABS: Platelet Estimate Normal; RBC Morphology Normal
--- NOTE | 2021-06-17 09:35 | HMH.DCSUM ---
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 In the emergency room his work-up included a CT of the abdomen and an ultrasound of his right upper quadrant. Gallbladder was filled with thickened sludge, Hoffman's sign is positive, and constellation of features suggest an acute cholecystitis. Surgery service was consulted, and Dr. Boothe and actively plans on inpatient to the operating room tomorrow. He is currently receiving IV fluid and antibiotics. 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 He presented with complaints of right-sided abdominal pain onset approximately 9 AM to 10 AM yesterday morning with associated nausea and vomiting. Character of the pain is described as a hot poker . Radiation to his back. Patient had eaten eggs for breakfast at [employer] approximately 6 AM yesterday. He was seen and evaluated in the emergency department yesterday afternoon. Evaluation emergency department included routine blood work which did reveal a slightly above the normal white blood cell count. Liver function tests and amylase and lipase were within normal limits. CT scan relatively unremarkable other than possible distal colon thickening versus merely nondistention. Clinical scenario is consistent with possible gallbladder etiology and he therefore underwent ultrasound. Preliminary results reveal thick layering sludge. Due to the patient's refractory symptoms of pain he was admitted for inpatient management and surgical consultation. Of note, the patient did undergo gallbladder ultrasound 2 years ago which was normal. Due to the symptomatology he was treated for clinical acute cholecystitis. Arrangements were made for cholecystectomy (Per Dr. Boothe). 06/15/21 Abd/Pelvis CT: FINDINGS: LOWER THORAX: No acute finding ABDOMEN & PELVIS: The liver, spleen, adrenal glands, pancreas, and kidneys have an unremarkable appearance. No renal or ureteral calculi. No hydronephrosis or renal mass. No intestinal obstruction or free air. No evidence of appendicitis. There are few colonic diverticula. No evidence of diverticulitis. There is mild colonic wall thickening at the rectal area and rectosigmoid junction. This is nonspecific and may only be related to nondistention. Colitis/proctitis is also consideration. There are few scattered small mesenteric nodes with small nodes in the periportal region not significantly changed. No acute bony findings. IMPRESSION: Mild thickening of the rectum and sigmoid rectal area which could be due to nondistention or mild colitis/proctitis Otherwise negative Dictated by: Davis Foley MD 06/15/21 GB US: FINDINGS: Pancreas: Pancreas is not well delineated due to overlying bowel gas. Liver: Diffuse fatty liver markedly limiting resolution.. There is appropriate direction of blood flow within a non dilated portal vein. Right kidney: Unremarkable appearing. No hydronephrosis. Gallbladder: Gallbladder poorly imaged. There does appear to be some layering sludge in the gallbladder. No obvious shadowing stones are demonstrated. Common bile duct is normal at 2 mm. The no gallbladder wall thickening, or pericholecystic fluid IMPRESSION: Somewhat limited study. Diffuse fatty liver with gallbladder sludge. Dictated by: Davis Foley MD 06/16/21 Laparoscopic cholecystectomy Operative findings:: Patient had a severely inflamed thickened acutely inflamed gallbladder. There was some fibrinopurulent exudate surrounding the gallbladder. There was evidence of possible partial thickness necrosis without perforation. There was moderate sized
== END 2021-06-17 12:05 | disposition home or self-care (01) ==
LOC: ER 15:40 → 2ND 18:44
PROVIDERS: Nurse Practitioner Family; Surgery; Admitting Provider Family Medicine; Emergency Provider Emergency Medicine; PCP Emergency Medicine; Visit Provider Family Medicine
PROC: 0FT44ZZ Resection of Gallbladder, Percutaneous Endoscopic Approach (ICD-10-PCS; CPT 47562; principal; 2021-06-16 13:00)
DX: K80.00 Calculus of gallbladder with acute cholecystitis without obstruction (principal); Z20.822 Contact with and (suspected) exposure to COVID-19; I10 Essential (primary) hypertension; G43.909 Migraine, unspecified, not intractable, without status migrainosus; Z79.899 Other long term (current) drug therapy
CPT/HCPCS: 47562; 36415; 74177; 76705; 80048; 80053; 82150; 83690; 85007; 85025; 85651; 86140; 96365; 96367; 96375; 96376; 99284; C9803; G0378; J2405; J2543; J2710; Q9967; U0003; U0005

== ENCOUNTER 2021-06-24 07:49 | Emergency (ER) | payer OTHER, SELFPAY ==
[2021-06-24 07:50] VITALS: BP 163/113; PULSE 109; RESP 18; TEMP 37.3; O2SAT 97; BMI 31.5
--- NOTE | 2021-06-24 08:15 | HMH.EDGENADL ---
ED Disposition Clinical Impression: Contact dermatitis Qualifiers: Contact dermatitis type: allergic Contact dermatitis trigger: adhesive Qualified Code(s): L23.1 - Allergic contact dermatitis due to adhesives Disposition: Home, Self-Care Condition on Discharge: Good Instructions: Contact Dermatitis Prescriptions: cephALEXin [cephALEXin 500mg capsule*] 500 mg PO Q6H 5 Days #20 cap Transmission Status: Pending to Clinic [facility] Time of Disposition: 08:43 - Critical Care Critical Care Time: No Attestation: On 06/24/21, the high probability of a clinically significant, sudden or life threatening deterioration of the following system(s) required my full and direct attention, intervention and personal management. The time I documented below is in addition to time spent performing reported procedures but includes the following listed in this critical care notation. Medical Decision Making - Juan Inquiry Pt receiving controlled substance: No Juan was queried for this patient: No Vital Signs: 06/24/21 07:50 06/24/21 08:31 Temperature 99.1 F Temperature Source Oral Pulse Rate 106 H Pulse Rate [Left Radial] 109 H Respiratory Rate 18 Blood Pressure 192/142 H Blood Pressure [Right Arm] 163/113 H Blood Pressure Mean 158 Blood Pressure Mean [Right Arm] 129 Blood Pressure Source [Right Arm] Automatic Cuff Blood Pressure Position [Right Arm] Sitting 02 Sat by Pulse Oximetry 97 95 Oxygen Delivery Method Room Air - Lab Data Lab Results 06/24/21 08:00: WBC 9.2, RBC 5.21, Hgb 16.1, Hct 47.4, MCV 91.1, MCH 30.9, MCHC 33.9, RDW 12.7, Plt Count 473 H, MPV 7.4, Neut % (Auto) 56.0, Lymph % (Auto) 32.3, [place] % (Auto) 4.6, Eos % (Auto) 5.7, Baso % (Auto) 1.3, Neut # (Auto) 5.1, Lymph # (Auto) 3.0, [place] # (Auto) 0.4, Eos # (Auto) 0.5 H, Baso # (Auto) 0.1 06/24/21 08:00: Sodium 141, Potassium 3.7, Chloride 105, Carbon Dioxide 26, Anion Gap 13.7, BUN 11, Creatinine 1.00, Estimated Creat Clear 132, Estimated GFR 81, Est GFR ( Amer) 98, Glucose 149 H, Calcium 9.4, Total Bilirubin 0.5, AST 29, Alkaline Phosphatase 92, Total Protein 8.1, Albumin 4.6, Globulin 3.5 H, Albumin/Globulin Ratio 1.3, Lipase 35 Result diagrams: 06/24/21 08:00 06/24/21 08:00 Orders (Tests/Meds): ED MEDICATIONS Generic Name Dose Route Start Last Admin Trade Name Freq PRN Reason Stop Dose Admin Zinc Acetate/Diphenhydramine 1 gm 06/24/21 09:00 Diphenhydramine 2% Cream 28gm TP 07/24/21 08:59 TID CRIS Discontinued Medications Generic Name Dose Route Start Last Admin Trade Name Freq PRN Reason Stop Dose Admin Cephalexin HCl 500 mg 06/24/21 08:14 06/24/21 08:21 Cephalexin 500mg Capsule PO 06/24/21 08:15 500 mg ONCE ONE Administration ORDERS Category Date Time Status Comprehensive Metabolic Panel Stat Lab 06/24/21 08:14 Ordered Lipase Stat Lab 06/24/21 08:14 Ordered Blood Culture Stat Micro 06/24/21 08:14 Ordered Medical Decision Narrative: 46 y/o M who presented to the emergency department with concerns for surgical site infection status post laparoscopic cholecystectomy on 06/16. Patient on evaluation was found to have contact dermatitis around all of his incision sites. There were some subcentimeter bullae weeping serous fluid, no induration, purulence, drainage, or significant fevers. Patient clinically appears well. He had a full panel of labs which demonstrated no leukocytosis, no elevated LFTs, no TAYLOR, or other significant findings. We did obtain 2 blood cultures on patient's arrival that will be followed up. Given low-grade fevers and low risk of treating with antibiotics, patient was discharged with 5 days of Keflex and provided his first dose in the emergency department. However, patient was counseled that this is felt most likely to be allergic contact dermatitis likely secondary to the Steri-Strips which recently fell off. Patient was advised to use Benadryl cream on the in
[2021-06-24 08:22] LABS: Basophils # 0.1 K/mm3 (0-0.2); Basophils % 1.3 % (0.1-2.0); Eosinophils # 0.5 K/mm3 (0.0-0.4); Eosinophils % 5.7 % (0.1-12.0); Hematocrit 47.4 % (42.0-52.0); Hemoglobin 16.1 g/dL (14.1-18.0); Lymphocytes % 32.3 % (10-50); Mean Corpuscular HGB Conc 33.9 g/dL (31.8-35.4); Mean Corpuscular Hemoglobin 30.9 pg (27.0-31.2); Mean Corpuscular Volume 91.1 fl (80-94); Mean Platelet Volume 7.4 fl (7.4-10.4); Monocytes # 0.4 K/mm3 (0.1-1.0); Monocytes % 4.6 % (1.7-9.3); Neutrophils # 5.1 K/mm3 (1.8-7.8); Platelet Count 473 K/mm3 (142-424); Red Blood Count 5.21 M/mm3 (4.60-6.20); Red Cell Distribution Width 12.7 % (11.5-17.5); White Blood Count 9.2 K/mm3 (4.8-10.8)
[2021-06-24 08:27] LABS: Albumin Level 4.6 g/dl (3.5-5.0); Albumin/Globulin Ratio 1.3 (1.1-1.8); Alkaline Phosphatase 92 U/L (38-126); Anion Gap 13.7 mEq/L (5-15); Aspartate Amino Transferase 29 U/L (17-59); Bilirubin,Total 0.5 mg/dl (0.2-1.3); Blood Urea Nitrogen 11 mg/dl (9-20); Calcium 9.4 mg/dl (8.4-10.2); Carbon Dioxide 26 mmol/L (22.0-30.0); Chloride 105 mmol/L (98-107); Creatinine Clearance Estimated 132 mL/min (50-200); Estimated Glomerular Filt Rate 81 ml/min (>60); GFR (African American) 98 ML/MIN (>60); Globulin 3.5 g/dL (1.3-3.2); Glucose 149 mg/dl (74-100); Lipase 35 U/L (23-300); Potassium 3.7 mmoL/L (3.5-5.1); Sodium 141 mmol/L (136-145); Total Protein,Serum 8.1 g/dl (6.3-8.2)
[2021-06-24 08:31] VITALS: BP 192/142; PULSE 106; O2SAT 95
[2021-06-24 08:56] VITALS: BP 192/142; PULSE 103; RESP 20; TEMP 37.3; O2SAT 95
[2021-06-24 09:25] LABS: Alanine Aminotransferase 31 U/L (12-78)
== END 2021-06-24 08:58 | disposition home or self-care (01) ==
PROVIDERS: Emergency Medicine; Emergency Provider Emergency Medicine; PCP Emergency Medicine
DX: L23.1 Allergic contact dermatitis due to adhesives (principal); I10 Essential (primary) hypertension
CPT/HCPCS: 80053; 83690; 85025; 87040; 99281

== ENCOUNTER 2021-11-22 13:47 | Emergency (ER) | payer OTHER, SELFPAY ==
[2021-11-22 13:48] VITALS: PULSE 90; RESP 19; TEMP 36.8; O2SAT 96; BMI 33.9
--- NOTE | 2021-11-22 14:27 | XR_ITS ---
FINAL REPORT CLINICAL HISTORY: PAIN, no particular injury, possible overuse FINDINGS: 3 views of the right shoulder were obtained. There is no acute fracture or dislocation. The joint spaces are intact. There are no soft tissue abnormalities. IMPRESSION: No acute process. Reviewed, Interpreted and Dictated by Gagan Enciso MD Transcribed by Vitaly Link Authenticated by Gagan Enciso MD on 11/22/2021 03:06:02 PM [facility]
--- NOTE | 2021-11-22 15:04 | HMH.EDUTC ---
[facility] [place] Clinical Impression: Shoulder strain Qualifiers: Encounter type: initial encounter Laterality: right Qualified Code(s): S46.911A - Strain of unspecified muscle, fascia and tendon at shoulder and upper arm level, right arm, initial encounter Disposition: Home, Self-Care Condition on Discharge: Good Instructions: DI for Shoulder Sprain, DI for Muscle Spasm Additional Instructions: *Etodolac enrique 8 hours with meal as needed for pain/inflammation *Not additional anti-inflammatory like Ibuprofen, motrin, aleve, advil with the above amount of Etodolac. You can still take Tylenol every 4 hours as needed if you need something else for pain *Ice 20 minutes every 2 hours for the first 48 hours after the initial injury followed by moist heat every 20 minutes 3-4 times a day to affected area *Muscle relaxer every 8 hours as needed for muscle spasms but remember, it WILL cause drowsiness You cannot take it and drive, operate machinery or care for small children. *Keep this area active, no movement leads to more stiffness, However take it easy and avoid heavy lifting pushing or pulling *Follow up with you family doctor if no improvement for further treatment Prescriptions: Etodolac 200 mg PO Q8HP PRN #20 cap PRN Reason: Moderate Pain Transmission Status: Pending to [facility] Cyclobenzaprine HCl [Flexeril 10mg tablet] 10 mg PO Q8HP PRN #15 tab PRN Reason: Muscle Spasm Transmission Status: Pending to [facility] methylPREDNISolone [Medrol 4mg tab] 4 mg PO DIRECTED #21 tab Transmission Status: Pending to [facility] Referrals: Coy Vance MD [Primary Care Provider] - As needed Time of Disposition: 15:36 Medical Decision Making - Juan Inquiry Pt receiving controlled substance: No Juan was queried for this patient: No Vital Signs: 11/22/21 13:48 Temperature 98.3 F Temperature Source Oral Pulse Rate [Right Radial] 90 Respiratory Rate 19 02 Sat by Pulse Oximetry 96 Oxygen Delivery Method Room Air - Radiology Data #1 Image(s): Shoulder Image Reviewed: Yes I have reviewed radiologist's interpretation IMPRESSION: No acute process. [facility] [place] - General Stated complaint: rt shoulder pain Time Seen by Provider: 11/22/21 15:05 Mode of Arrival: Ambulatory Source of Information: Patient Limitations: No Limitations Description of Symptoms (Recalled from Triage Doc. by RN): Pt stated that he was trying to catch a tractor from falling in [place]. His right shoulder has been hurting since then. This was two weeks ago. HEENT Symptoms (Recalled from RN notes): No Resp Symptoms (Recalled from RN notes): No Skin Symptoms (Recalled from RN notes): No MS Symptoms (Recalled from RN notes): Yes Functional Status (Recalled from RN notes): n/a - History of Present Illness Provider Complaint: Patient states that about 2 weeks ago he was working on a tractor and it started rolling and he tried to grab it to keep it from going in the [place] and he has been having pain in his right shoulder ever since States that area feels tight and having muscle spasms - Related Data Home Medications Medication Instructions Recorded Confirmed Galcanezumab-Gnlm [Emgality Pen] 120 mg SQ MONTHLY 06/15/21 06/15/21 Ubrogepant [Ubrelvy] 100 mg PO NEEDED PRN 06/15/21 06/15/21 Previous Rx's Medication Instructions Recorded cephALEXin [cephALEXin 500mg 500 mg PO Q6H 5 Days #20 cap 06/24/21 capsule*] Cyclobenzaprine HCl [Flexeril 10mg 10 mg PO Q8HP PRN #15 tab 11/22/21 tablet] Etodolac 200 mg PO Q8HP PRN #20 cap 11/22/21 methylPREDNISolone [Medrol 4mg 4 mg PO DIRECTED #21 tab 11/22/21 tab] Allergies Allergy/AdvReac Type Severity Reaction Status Date / Time No Known Allergies Allergy Verified 07/02/21 09:06 - Worker's Comp Is this a Worker's Comp case?: No [facility] History - Hepatitis A Screen Drug use history?: No High risk sexual behaviors?: No His
[2021-11-22 15:54] VITALS: BP 186/90; PULSE 90; RESP 19; TEMP 36.8; O2SAT 96
== END 2021-11-22 15:54 | disposition home or self-care (01) ==
PROVIDERS: Emergency Provider Nurse Practitioner; PCP Emergency Medicine
DX: S46.911A Strain of unspecified muscle, fascia and tendon at shoulder and upper arm level, right arm, initial encounter (principal); X50.0XXA Overexertion from strenuous movement or load, initial encounter; Y92.89 Other specified places as the place of occurrence of the external cause; I10 Essential (primary) hypertension; Z87.891 Personal history of nicotine dependence
CPT/HCPCS: 73030; 99212; G0463

== ENCOUNTER 2022-01-01 16:03 | Emergency (ER) | payer OTHER, SELFPAY ==
--- NOTE | 2022-01-01 16:10 | XR_ITS ---
PROCEDURE INFORMATION: Exam: XR Left Ankle Exam date and time: 01/01/2022 4:23 PM Age: 46 years old Clinical indication: Injury or trauma; Fall; Sprain or strain; Ankle; Left TECHNIQUE: Imaging protocol: XR Left ankle. Views: 3 or more views. COMPARISON: No relevant prior exams. FINDINGS: Bones/joints: Moderate-sized calcaneal spur. The remaining osseous structures are unremarkable. No other fractures. The joint spaces are intact. No dislocations. Soft tissues: Swelling laterally. IMPRESSION: No fractures or dislocations.
[2022-01-01 16:46] VITALS: BP 154/83; PULSE 77; RESP 17; TEMP 36.9; O2SAT 95; BMI 38.0
--- NOTE | 2022-01-01 17:32 | HMH.EDUTC ---
[facility] [place]ression: Left ankle sprain Qualifiers: Encounter type: initial encounter Involved ligament of ankle: anterior talofibular ligament Qualified Code(s): S93.492A - Sprain of other ligament of left ankle, initial encounter Disposition: Home, Self-Care Condition on Discharge: Good Instructions: DI for Ankle Sprain Additional Instructions: Rest, ice for 20 minutes several times a day, keep elevated as often as possible, keep wrapped or in walking boot Referrals: Coy Vance MD [Primary Care Provider] - Time of Disposition: 17:41 Medical Decision Making - Juan Inquiry Pt receiving controlled substance: No Vital Signs: 01/01/22 16:46 Temperature 98.4 F Temperature Source Oral Pulse Rate [Left Radial] 77 Respiratory Rate 17 Blood Pressure [Right Arm] 154/83 H Blood Pressure Mean [Right Arm] 106 02 Sat by Pulse Oximetry 95 - Radiology Data #1 Image(s): Ankle Image Reviewed: Yes I have reviewed radiologist's interpretation Preliminary Findings: Normal/NAD, No Fracture Seen PROCEDURE INFORMATION: Exam: XR Left Ankle Exam date and time: 01/01/2022 4:23 PM Age: 46 years old Clinical indication: Injury or trauma; Fall; Sprain or strain; Ankle; Left TECHNIQUE: Imaging protocol: XR Left ankle. Views: 3 or more views. COMPARISON: No relevant prior exams. FINDINGS: Bones/joints: Moderate-sized calcaneal spur. The remaining osseous structures are unremarkable. No other fractures. The joint spaces are intact. No dislocations. Soft tissues: Swelling laterally. IMPRESSION: No fractures or dislocations. [facility] [place] General Stated complaint: left ankle injury Time Seen by Provider: 01/01/22 17:32 Mode of Arrival: Ambulatory Description of Symptoms (Recalled from Triage Doc. by RN): patient comes in today for an injury to his left ankle. patient was getting off a tractor and rolled his ankle. injury occured today. HEENT Symptoms (Recalled from RN notes): No Resp Symptoms (Recalled from RN notes): No Skin Symptoms (Recalled from RN notes): No MS Symptoms (Recalled from RN notes): Yes Functional Status (Recalled from RN notes): wnl - History of Present Illness Provider Complaint: Patient stepped off tractor earlier today, rolled left ankle to side. Instant pain and swelling of left lateral ankle. Hurts to bear weight. Onset (ago): hour(s) (3) Location: left, lower extremity Severity scale (1-10): 5 Consistency: constant Relieving factors: immobilization Exacerbating factors: movement Associated symptoms: denies other symptoms Treatments prior to arrival: cold therapy - Related Data Home Medications Medication Instructions Recorded Confirmed Ubrogepant [Ubrelvy] 100 mg PO NEEDED PRN 06/15/21 12/09/21 Previous Rx's Medication Instructions Recorded Cyclobenzaprine HCl [Flexeril 10mg 10 mg PO Q8HP PRN #15 tab 11/22/21 tablet] Etodolac 200 mg PO Q8HP PRN #20 cap 11/22/21 galcanezumab-gnlm 120 mg/mL 120 mg SQ MONTHLY #1 ml 12/09/21 subcutaneous pen injector propranolol 80 mg capsule,24 80 mg PO DAILY #90 cap 12/09/21 hr,extended release Allergies Allergy/AdvReac Type Severity Reaction Status Date / Time No Known Allergies Allergy Verified 12/09/21 07:42 - Worker's Comp Is this a Worker's Comp case?: No [facility] History - Hepatitis A Screen Attestation statement:: This patient has been screened for Hepatitis A risk factors. I have reviewed the patient's past medical history: Yes Medical History: Reports:: Cancer, Hypertension, Kidney Stones, Migraine, Palpitations Denies:: Diabetes Mellitus Type 1, Diabetes Mellitus Type 2, MRSA Laterality Cases: Right: Arthroscopy Knee, Other Other Surgeries: Yes: Appendectomy, Cholecystectomy, Ureter Stent Amputation: No Fractures: No Comment: renal denervation, right kidney stent - Social History Smoking Status: Former smoker Alcohol Intake: current Alcohol Intake Dionte
[2022-01-01 18:28] VITALS: BP 154/83; PULSE 77; RESP 17; TEMP 36.9
== END 2022-01-01 18:28 | disposition home or self-care (01) ==
PROVIDERS: Emergency Provider Physician Assistant; PCP Emergency Medicine
DX: S93.492A Sprain of other ligament of left ankle, initial encounter (principal); W10.9XXA Fall (on) (from) unspecified stairs and steps, initial encounter
CPT/HCPCS: 73610; 99212; G0463

== ENCOUNTER 2022-02-03 11:25 | Emergency (ER) | payer OTHER, SELFPAY ==
[2022-02-03 11:40] VITALS: BP 152/111; PULSE 97; RESP 20; TEMP 36.8; O2SAT 95; BMI 35.2
--- NOTE | 2022-02-03 12:00 | HMH.EDUTC ---
[facility] [place] Clinical Impression: Viral syndrome, Exposure to COVID-19 virus Disposition: Home, Self-Care Condition on Discharge: Good Instructions: DI for Viral Syndrome, DI for COVID-19 (Suspected or Confirmed ), Preventing the Spread of Coronavirus Discharge Instructions Additional Instructions: Drink plenty of fluids. Take tylenol or ibuprofen for pain or fever. Take the medications as directed. Follow up with your regular doctor. GO TO THE ER FOR ANY WORSENING SYMPTOMS Quarantine until you know the results of your covid-19 test. Notify your school or workplace of your results and follow their instructions regarding return to work/school. Prescriptions: Promethazine/Dextromethorphan [Promethazine-Dm Syrup] 5 ml PO Q6HP PRN #240 ml PRN Reason: Cough Transmission Status: Received by [facility] [employer] [facility] Ondansetron [Zofran 4mg ODT] 4 mg PO Q8HP PRN #20 tab PRN Reason: Nausea Transmission Status: Received by [facility] [employer] [facility] methylPREDNISolone [Medrol] 4 mg PO DIRECTED 6 Days #21 packet Transmission Status: Received by [facility] [employer] [facility] Referrals: Coy Vance MD [Primary Care Provider] - Forms: Work/School Release Time of Disposition: 12:11 Medical Decision Making - Medical Records Medical records reviewed: No: I reviewed the patient's medical records. - Juan Inquiry Pt receiving controlled substance: No Vital Signs: 02/03/22 11:40 02/03/22 12:23 Temperature 98.3 F 98.3 F Temperature Source Oral Pulse Rate 90 Pulse Rate [Left] 97 H Respiratory Rate 20 20 Blood Pressure 152/111 H Blood Pressure [Right Arm] 152/111 H Blood Pressure Mean [Right Arm] 124 02 Sat by Pulse Oximetry 95 [facility] [place] HPI - General Stated complaint: covid test Time Seen by Provider: 02/03/22 12:00 Description of Symptoms (Recalled from Triage Doc. by RN): patient comes in for covid swab, shortness of breath, diarrhea, fever, body aches, cough. patient states symptoms have been going on for several days HEENT Symptoms (Recalled from RN notes): Yes Resp Symptoms (Recalled from RN notes): Yes Skin Symptoms (Recalled from RN notes): No MS Symptoms (Recalled from RN notes): No Functional Status (Recalled from RN notes): wnl - History of Present Illness Provider Complaint: He states that since yesterday he has had headache, chills, low grade fever scratchy sore throat, and body aches. His and daughter have similar symptoms also. His daughter tested positive for covid-19 yesterday. - Related Data Previous Rx's Medication Instructions Recorded Cyclobenzaprine HCl [Flexeril 10mg 10 mg PO Q8HP PRN #15 tab 11/22/21 tablet] Etodolac 200 mg PO Q8HP PRN #20 cap 11/22/21 galcanezumab-gnlm 120 mg/mL 120 mg SQ MONTHLY #1 ml 12/09/21 subcutaneous pen injector propranolol 80 mg capsule,24 80 mg PO DAILY #90 cap 12/09/21 hr,extended release ubrogepant 100 mg tablet 100 mg PO NEEDED PRN #10 tab 01/06/22 Ondansetron [Zofran 4mg ODT] 4 mg PO Q8HP PRN #20 tab 02/03/22 Promethazine/Dextromethorphan 5 ml PO Q6HP PRN #240 ml 02/03/22 [Promethazine-Dm Syrup] methylPREDNISolone [Medrol] 4 mg PO DIRECTED 6 Days #21 02/03/22 packet Allergies Allergy/AdvReac Type Severity Reaction Status Date / Time No Known Allergies Allergy Verified 01/06/22 08:41 - Worker's Comp Is this a Worker's Comp case?: No [facility] History - Hepatitis A Screen Attestation statement:: This patient has been screened for Hepatitis A risk factors. I have reviewed the patient's past medical history: Yes Medical History: Reports:: Cancer, Hypertension, Kidney Stones, Migraine, Palpitations Denies:: Diabetes Mellitus Type 1, Diabetes Mellitus Type 2, MRSA Laterality Cases: Right: Arthroscopy Knee, Other Other Surgeries: Yes: Appendectomy, Cholecystectomy, Ureter Stent Amputation: No Fractures: No Comment: renal denervation, right kidney stent - Social History Smoking Status: For
[2022-02-03 12:23] VITALS: BP 152/111; PULSE 90; RESP 20; TEMP 36.8
== END 2022-02-03 12:25 | disposition home or self-care (01) ==
PROVIDERS: Emergency Provider Nurse Practitioner Family; PCP Emergency Medicine
DX: U07.1 COVID-19 (principal)
CPT/HCPCS: 99212; C9803; G0463; U0003; U0005

== ENCOUNTER → 2022-05-03 23:53 | Outpatient (CLI) | payer OTHER, SELFPAY ==
--- NOTE | 2022-05-03 23:59 | XR_ITS ---
PROCEDURE INFORMATION: Exam: XR Chest Exam date and time: 05/04/2022 12:02 AM Age: 47 years old Clinical indication: Cough and shortness of breath; Additional info: Persistent cough after covid TECHNIQUE: Imaging protocol: Radiologic exam of the chest. Views: 2 views. COMPARISON: CHESTWO CT chest wo con 02/17/2019 2:54 PM FINDINGS: Lungs: Unremarkable. No consolidation. Subcentimeter calcified granuloma left lower lobe. Pleural spaces: Unremarkable. No pleural effusion. No pneumothorax. Heart/Mediastinum: Unremarkable. No cardiomegaly. Bones/joints: Unremarkable. IMPRESSION: No acute findings.
== END ==
PROVIDERS: PCP Family Medicine; Visit Provider Family Medicine
DX: R05.9 Cough, unspecified (principal)
CPT/HCPCS: 71046

== ENCOUNTER 2022-08-09 16:16 | Emergency (ER) | payer OTHER, SELFPAY ==
--- NOTE | 2022-08-09 16:22 | XR_ITS ---
PROCEDURE INFORMATION: Exam: XR Right Shoulder Exam date and time: 08/09/2022 4:21 PM Age: 47 years old Clinical indication: Pain; Shoulder; Right; Additional info: Fall; Shoulder pain TECHNIQUE: Imaging protocol: Radiologic exam of the Right shoulder. Views: 2 or more views. COMPARISON: CR XR SHOULDER RT MIN 2V 11/22/2021 2:36 PM FINDINGS: Bones/joints: There is no evidence of acute fracture or dislocation. Mild degenerative changes involve the acromioclavicular joint. Minor inferior spurring involves the glenoid. The cortical clavicular joint appears intact. Joint spaces appear preserved. No rib fractures. Soft tissues: No significant soft tissue edema. No subcutaneous emphysema or radiopaque foreign bodies. Visualized right lung appears clear Ana Maria of IMPRESSION: 1. No acute posttraumatic osseous injury. 2. Minor degenerative changes of the glenohumeral and acromioclavicular joints.
--- NOTE | 2022-08-09 16:22 | XR_ITS ---
PROCEDURE INFORMATION: Exam: XR Right Clavicle, Complete Exam date and time: 08/09/2022 4:24 PM Age: 47 years old Clinical indication: Pain; Other: Clavicle; Additional info: Fall; Shoulder pain TECHNIQUE: Imaging protocol: Radiologic exam of the Right clavicle. Complete exam. Views: Any number of views. COMPARISON: CR XR HUMERUS RT 08/09/2022 4:23 PM FINDINGS: Bones/joints: There is no evidence of acute fracture or dislocation. Mild degenerative changes involve the acromioclavicular joint. Minor inferior spurring involves the glenoid. The corico- clavicular joint appears intact. Soft tissues: No significant soft tissue edema. No subcutaneous emphysema or radiopaque foreign bodies. IMPRESSION: 1. No acute posttraumatic osseous injury. 2. Minor degenerative changes of the glenohumeral and acromioclavicular joints.
--- NOTE | 2022-08-09 16:22 | XR_ITS ---
PROCEDURE INFORMATION: Exam: XR Right Humerus Exam date and time: 08/09/2022 4:23 PM Age: 47 years old Clinical indication: Pain; Upper arm; Right; Additional info: Fall; Shoulder pain TECHNIQUE: Imaging protocol: Radiologic exam of the Right humerus. Views: 2 or more views. COMPARISON: CR XR SHOULDER RT MIN 2V 08/09/2022 4:21 PM FINDINGS: Bones/joints: There is no evidence of acute fracture or dislocation. Mild degenerative changes involve the acromioclavicular and glenohumeral joints. Soft tissues: No significant soft tissue edema. No subcutaneous emphysema or radiopaque foreign bodies. IMPRESSION: No acute posttraumatic osseous injury.
--- NOTE | 2022-08-09 16:24 | HMH.EDGENADL ---
Discharge Plan Disposition Patient Disposition: Home, Self-Care Condition: Fair Prescriptions Prescriptions: New hydrocodone-acetaminophen 5-325 mg tablet 1 tab PO Q8H PRN (Reason: pain) Qty: 10 0RF No Action galcanezumab-gnlm 120 mg/mL pen injector 120 mg SQ MONTHLY Qty: 1 12RF carvedilol phosphate 20 mg capsule, ER multiphase 24 hr 20 mg PO DAILY Qty: 30 2RF Rx Instructions: must administer with a meal/food Referrals Follow up/Referrals: Joao Robbins DO [Staff Physician] - See instructions (concern for right shoulder cuff or labral injury) Ambrocio Wang MD [Primary Care Provider] - See instructions Clinical Impressions Clinical Impression: Injury of right shoulder Instructions Patient Instructions: DI for Shoulder Labral Tear Discharge ED Provider: Jordan Lorenzo General Adult HPI General Chief complaint: Extremity Injury, Upper Stated complaint: 08/09@1600Ahome R shoulder Time Seen by Provider: 08/09/22 16:20 History of Present Illness HPI narrative: Patient is a 47-year-old male with no pertinent past medical history who presents with a right shoulder injury. He says that he was at work earlier today when he fell off of a trailer and landed on an outstretched right arm and his right shoulder. He says he felt immediate pain in his right shoulder and collarbone. He denies any shortness of breath. He does state that he does have some numbness going down into his entire hand. He says it is diffusely throughout his hand and not worse on any lateral or medial aspect. He says that his range of motion is limited due to pain. No other injuries. Did not lose consciousness. No neck pain. Denies any chest or abdominal pain. Related Data Previous Rx's Medication Instructions Recorded carvedilol phosphate 20 mg 20 mg PO DAILY #30 caps 04/22/22 capsule,[id number] multiphase galcanezumab-gnlm 120 mg/mL 120 mg SQ MONTHLY migraine 08/04/22 subcutaneous pen injector headache prevention #1 mL hydrocodone 5 mg-acetaminophen 325 1 tab PO Q8H PRN pain #10 tabs 08/09/22 mg tablet Allergies Allergy/AdvReac Type Severity Reaction Status Date / Time lisinopril Allergy Mild Verified 08/04/22 08:45 [facility] Disclaimer: The information contained in this section may have been updated after the patient was seen, as this information can be updated by other users. Medical History (Updated 08/09/22 @ 17:25 by Jordan Lorenzo MD) Back pain Closed fracture of tuft of distal phalanx of finger History of obstructive sleep apnea History of sleep apnea Hypertension Migraine Surgical History History of repair of ACL Hx of cholecystectomy Family History Other Substance abuse Social History Smoking Status: Never smoker second hand exposure: No alcohol intake: current substance use type: denies use current occupational status: employed Travel in the last 8 weeks: None household members: spouse and other housing: house marital status: ROS Obtained: Yes All systems reviewed & no additional complaints except as documented A 14 point review of system was obtained and otherwise negative except per HPI Physical Exam General General appearance: alert and in no apparent distress Head Head exam: atraumatic, normocephalic and normal inspection Eye Eye exam: Present normal appearance, PERRL and EOMI ENT ENT exam: Present normal exam, normal oropharynx, mucous membranes moist, TM's normal bilaterally and normal external ear exam Neck Neck exam: Present normal inspection, full ROM and trachea midline; Absent meningismus or lymphadenopathy Chest Chest inspection: Present normal inspection and symmetric chest wall rise; Absent tenderness Respiratory Respiratory exam: Present normal lung sounds
[2022-08-09 16:30] VITALS: BP 175/108; PULSE 110; RESP 20; TEMP 36.9; O2SAT 95; BMI 38.0
[2022-08-09 17:46] VITALS: BP 159/100; PULSE 102; RESP 18; TEMP 36.9; O2SAT 97
== END 2022-08-09 17:46 | disposition home or self-care (01) ==
PROVIDERS: Emergency Provider Student in an Organized Health Care Education/Training Program; PCP Family Medicine
DX: S49.91XA Unspecified injury of right shoulder and upper arm, initial encounter (principal); W19.XXXA Unspecified fall, initial encounter; Y99.0 Civilian activity done for income or pay
CPT/HCPCS: 73000; 73030; 73060; 96372; 99284

== ENCOUNTER → 2022-08-11 14:55 | Outpatient (CLI) | payer OTHER, SELFPAY | LOC: SL 14:56 | PROVIDERS: PCP Family Medicine; Visit Provider Specialist | DX: G47.33 Obstructive sleep apnea (adult) (pediatric) (principal); R06.83 Snoring; Z86.69 Personal history of other diseases of the nervous system and sense organs | CPT/HCPCS: 95806 ==

== ENCOUNTER → 2022-08-15 07:21 | Outpatient (CLI) | payer OTHER, SELFPAY ==
--- NOTE | 2022-08-15 07:45 | MR_ITS ---
FINAL REPORT TECHNIQUE: Multiplanar and multisequence imaging of the right shoulder was obtained without contrast. CLINICAL HISTORY: shoulder pain. patient fell 1 week ago and heard shoulder pop. limited rom. weakness in arm. FINDINGS: Bones and joints: There is no acute fracture, edema, or pathologic marrow replacement. Acromioclavicular joint degenerative disease is present and there is osteophytosis which narrows the supraspinatus outlet. Rotator cuff: There is a full-thickness tear of the posterior supraspinatus tendon at the footplate. There is no tendon retraction. Infraspinatus tendon is intact. There is a partial tear of the subscapularis tendon. No biceps tendon dislocation is present. There is no fatty atrophy of the rotator cuff muscles. Labrum: No labral tear is identified. There is a tear of the inferior glenohumeral ligament anteriorly. The biceps tendon is within normal limits. No biceps tendon tear is identified. Other: There is a small joint effusion. Edema is seen in the anterior soft tissues. Remaining soft tissues are within normal limits. IMPRESSION: Full-thickness supraspinatus tendon tear at the footplate without retraction. Partial subscapularis tendon tear. Anterior inferior glenohumeral ligament tear. Reviewed, Interpreted and Dictated by Kindra Ashby MD Transcribed by Rianna Doyle Authenticated and [facility]
== END ==
PROVIDERS: PCP Family Medicine; Visit Provider Physician Assistant Surgical
DX: M25.511 Pain in right shoulder (principal); S49.91XA Unspecified injury of right shoulder and upper arm, initial encounter
CPT/HCPCS: 73221

== ENCOUNTER → 2022-08-30 12:37 | Outpatient (CLI) | payer OTHER, SELFPAY ==
[2022-08-30 12:41] LABS: Microscopic, Urine URINE MICROSCOPIC (MICROSCOPIC)
[2022-08-30 13:19] LABS: Basophils # 0.1 K/mm3 (0-0.2); Eosinophils # 0.4 K/mm3 (0.0-0.4); Eosinophils % 6.2 % (0.1-12.0); Hematocrit 45.2 % (42.0-52.0); Hemoglobin 15.1 g/dL (14.1-18.0); Lymphocytes # 2.3 K/mm3 (0.7-4.5); Lymphocytes % 39.8 % (10-50); Mean Corpuscular HGB Conc 33.5 g/dL (31.8-35.4); Mean Corpuscular Hemoglobin 29.9 pg (27.0-31.2); Mean Corpuscular Volume 89.4 fl (80-94); Mean Platelet Volume 7.5 fl (7.4-10.4); Monocytes # 0.4 K/mm3 (0.1-1.0); Neutrophils # 2.6 K/mm3 (1.8-7.8); Platelet Count 319 K/mm3 (142-424); Red Blood Count 5.05 M/mm3 (4.60-6.20); Red Cell Distribution Width 12.8 % (11.5-17.5); White Blood Count 5.7 K/mm3 (4.8-10.8)
[2022-08-30 13:28] LABS: Appearance,Urine CLEAR (Clear); Bilirubin,Urine Negative (Negative); Blood, Urine Negative (Negative); Color,Urine YELLOW (Yellow); Glucose,Urine (UA) Negative (Negative); Ketones,Urine Negative (Negative); Leukocyte Esterase,Urine Negative (Negative); Nitrate,Urine Negative (Negative); PH,Urine 5.5 (5.0-8.5); Protein,Urine Negative (Negative); Urobilinogen,Urine 0.2 EU/dl (0.2)
[2022-08-30 14:12] LABS: Bacteria,Urine Trace /lpf; Squamous Epithelial Cell,Urine Occasional #/hpf (0-5)
[2022-08-30 15:09] LABS: Chloride 110 mmol/L (98-107); Sodium 141 mmol/L (136-145)
[2022-08-30 15:10] LABS: Potassium 4.2 mmoL/L (3.5-5.1)
[2022-08-30 15:12] LABS: Alanine Aminotransferase 39 U/L (12-78); Albumin Level 4.5 g/dl (3.5-5.0); Albumin/Globulin Ratio 1.5 (1.1-1.8); Alkaline Phosphatase 101 U/L (38-126); Anion Gap 12.2 mEq/L (5-15); Aspartate Amino Transferase 27 U/L (17-59); Bilirubin,Total 0.6 mg/dl (0.2-1.3); Blood Urea Nitrogen 16 mg/dl (9-20); Carbon Dioxide 23 mmol/L (22.0-30.0); Estimated Glomerular Filt Rate 80 ml/min (>60); GFR (African American) 97 ML/MIN (>60); Glucose 124 mg/dl (74-100); Total Protein,Serum 7.5 g/dl (6.3-8.2)
== END ==
LOC: LAB 12:38
PROVIDERS: PCP Family Medicine; Visit Provider Orthopaedic Surgery
DX: Z01.818 Encounter for other preprocedural examination (principal)
CPT/HCPCS: 36415; 80053; 81001; 85025

== ENCOUNTER 2022-09-05 07:15 | Day surgery (SDC) | payer OTHER, SELFPAY ==
[2022-09-02 12:17] VITALS: BMI 39.0
[2022-09-05] VITALS (20 sets, daily range): BP systolic 121–177; BP diastolic 73–118; PULSE 72–89; RESP 12–20; TEMP 36.1–36.6; O2SAT 94–97
--- NOTE | 2022-09-05 07:57 | EXP.ANES.CKL ---
[facility] Disclaimer: The information contained in this section may have been updated after the patient was seen, as this information can be updated by other users. Medical History Back pain Closed fracture of tuft of distal phalanx of finger History of obstructive sleep apnea History of sleep apnea Hypertension Migraine Sleep apnea Surgical History History of repair of ACL Hx of cholecystectomy Family History Other Heart disease Substance abuse Social History Smoking Status: Never smoker second hand exposure: No alcohol intake: current substance use type: denies use current occupational status: employed Travel in the last 8 weeks: None household members: spouse and other housing: house marital status: [facility] Anesthesia Checklist Patient Identification Patient Identification: Arm Band and Verbal (Name & ) Structural Data Admitted From: Home Planned Operative Procedure/s: Left Shoulder Arthroscopy Consent for Planned Operative Procedure(s) Verified: Yes Verified Documents: Surgical Consent NPO Status Verified Time NPO: 00:00 Additional verifications Anesthesia Reactions: No Hx Blood Transfusions: No Blood Transfusion Reaction: No Airway Assessment C-Spine Mobility Assessed: Yes TMJ Mobility Assessed: Yes Dentition: Good Dentition Neurological Assessment Level of Consciousness: Awake, Alert and Appropriate Anesthesia Plan Anesthesia Risk discussed: Yes ASA Class: III Anesthesia Type: General w/block
--- NOTE | 2022-09-05 10:01 | P.PN_ITS ---
[facility] Disclaimer: The information contained in this section may have been updated after the patient was seen, as this information can be updated by other users. Medical History Back pain Closed fracture of tuft of distal phalanx of finger History of obstructive sleep apnea History of sleep apnea Hypertension Migraine Sleep apnea Surgical History History of repair of ACL Hx of cholecystectomy Family History Other Heart disease Substance abuse Social History Smoking Status: Never smoker second hand exposure: No alcohol intake: current substance use type: denies use current occupational status: employed Travel in the last 8 weeks: None household members: spouse and other housing: house marital status: [facility] Anesthesia Checklist Patient Identification Patient Identification: Verbal (Name & ) Structural Data Admitted From: Home Planned Operative Procedure/s: r rcr Consent for Planned Operative Procedure(s) Verified: Yes NPO Status Verified Time NPO: 00:00 Additional verifications Anesthesia Reactions: No Hx Blood Transfusions: No Blood Transfusion Reaction: No Airway Assessment C-Spine Mobility Assessed: Yes TMJ Mobility Assessed: Yes Dentition: Good Dentition Neurological Assessment Level of Consciousness: Awake, Alert and Appropriate Anesthesia Plan Anesthesia Risk discussed: Yes Anesthesia Plan: Verified ASA Class: II Anesthesia Type: General
--- NOTE | 2022-09-05 10:51 | EXP.ANES.I ---
[facility] Anesthesia Record Part I Anesthesia Record I Intake, IV Amount: 1,800 Estimated blood loss (mL): 0 Urine output (mL): 0 Blood Pressure: 121/74 SaO2: 94 Pulse Rate: 89 Respiratory Rate: 12 Temperature: 97.5 F Patient is:: Awake and Stable Stable to PACU at:: 10:45
--- NOTE | 2022-09-05 10:56 | EXP.OP.NOTE ---
Date of procedure: 09/05/22 Pre-op Diagnosis:: Right shoulder full-thickness rotator cuff tear Post-op Diagnosis:: Same Procedure performed:: Right shoulder arthroscopy with rotator cuff repair Surgeon:: Joao Robbins DO [employer] Roller Assembler(s):: Vandana DALTON RESIDENT DOCTOR:: Serg Roman Anesthesia: GETA and regional Estimated blood loss (mL): 0 Clinical Note:: 47-year-old [id number]-jhdachos male with full-thickness rotator cuff tear wished undergo operative intervention to allow for increased function and decreased pain. Operative findings:: Nonretracted full-thickness tear supraspinatus tendon Operative note:: Patient identified preoperatively. Right shoulder marked with a yes and my initials. Underwent a block with anesthesia. Taken the operating room placed upon the operating bed. General anesthesia ministered. Airway secured. Patient then placed in the lateral position on the beanbag with all bony prominences well-padded. Axillary roll placed. Right arm was then prepped within the arm lopez. Once prepped and draped final operative timeout performed to identify proper patient procedure and extremity. Everyone involved in the case agreed. No counter indications to beginning. Did receive preoperative antibiotics. Marking pen was used to enrike the bony landmarks of the shoulder and standard portal sites. Skin was used in size standard posterior viewing portal and the blunt trocar was placed in the glenohumeral joint. Within the glenohumeral joint the biceps was intact labrum was intact cartilage for the humeral head and glenoid intact. Mild undersurface tearing of the supraspinatus tendon was identified and debrided. Attention was then brought in the subacromial space. There is significant bursitis present. Bursectomy was completed with sucker shaver and cautery device. Then identified and scrutinized the rotator cuff finding full-thickness nonretracted tear of the supraspinatus tendon. The free edges were debrided. The footprint was debrided. Attention was then made to repair the lateral portal was made punch was used and suture was passed through the rotator cuff with a speed fix method Arthrex swivel lock anchor was used to repair rotator cuff tear. Good repair was obtained hole was covered. No further pathology was seen. The camera was removed. Joint was drained. Skin closed with nylon stitches. Sterile dressing placed. Patient patient has sling and pillow taken recovery in stable condition. Condition: stable Disposition: PACU Complications:: None apparent
--- NOTE | 2022-09-05 12:09 | SUR.PHASEI ---
Report given to Wilfrid Chau RN
--- NOTE | 2022-09-05 14:01 | SUR.PHASEII ---
Dr. Robbins and Elijah are aware of pt's pain level throughout the duration of PACU and Post Op. Pain medication given in post op to pt per Dr. Robbins's orders. Pt had no relief from additional pain medication and remained arousable but sleepy. Dr. Robbins reassessed pt's dressing and sling while in post op. Pt and family member instructed on how to take pain medication once at home. Both voiced understanding.
--- NOTE | 2022-09-06 09:46 | EXP.ANES.II ---
[facility] Anesthesia Record Part II Anesthesia Record Part II Discharge Time: 11:15 Destination: [facility] PACU nurse assessment reviewed?: Yes Patient Condition:: Good Anesthesia Complications:: None Swallowing reflex intact?: Yes Cyanosis?: No Blood Pressure: 157/99 Pulse Rate: 77 Temperature: 97.5 F Mental Status: Alert & Oriented Pain level:: 10 Nausea and/or vomitting:: None Intake, IV Amount: 2,000
[2022-09-06 09:47] VITALS: BP 157/99; PULSE 77; TEMP 36.4
== END 2022-09-05 13:31 | disposition home or self-care (01) ==
PROVIDERS: PCP Family Medicine; Visit Provider Orthopaedic Surgery
PROC: (CPT 29827; principal; 2022-09-05 08:45)
DX: M75.121 Complete rotator cuff tear or rupture of right shoulder, not specified as traumatic (principal); W17.89XA Other fall from one level to another, initial encounter
CPT/HCPCS: 29827; 96374; C1713; J2405

== ENCOUNTER 2022-12-12 09:00 | Outpatient (RCR) | payer BC, OTHER, SELFPAY ==
--- NOTE | 2022-10-04 12:00 | HMH.PTOPEV ---
PT Outpatient Evaluation Rehab PT Outpatient Evaluation Start: 10/04/22 09:47 Freq: Status: Active Protocol: Document 10/04/22 09:47 PDESERDAYANA (Rec: 10/04/22 10:57 PDESEROUX [id number]) E-signed By Robin Mckenna, PT Outpatient Therapy Subjective History Subjective History Pt. is a 47 year old male whom presents to [facility] Outpatient Physical Therapy Services in [place] for the initial evaluation this date( 10/04/22) w/ c/o subacute and constant RUE shldr. P!, weakness, and edema S/P RUE shldr. RC repair(see operative notes for specific details) on 09/05/22. Pt. reports DOI that led to the surgery was on 08/11/22 w/ JENNIFER after trying to catch himself w/ the RUE after slipping on some oil while unloading furniture off of a wagon to store into a shed. After RTMD two weeks pt. was instructed to remain in sling and to not lift the arm up actively. Pt. reports being allowed to rest arm out of the sling if he's just sitting and resting. Pt. RTMD . Current medications include Carvedilol and OTC anti-inflammatories for the S/ P RUE shldr. PMH includes Hypertension, hx. of migraines , hx. of RLE knee surgeries, and Choelcystectomy. Pt. denies hx. of diabetes, denies hx. of cancer(self), denies medicational allergy, denies pacemaker. Pt. reports latex allergy. Chief Complaint Pain,Spasms,Stiff,Swelling, Catches/Locks,Weakness Symptom Type Ache,Sharp,Dull,Stabbing, Shooting Symptoms Relieved By Rest/Positioning,Ice,Brace/ Support,OTC Meds Symptoms Aggravated By Physical Activity,Twisting, Lifting Prior Functional Limitations None Current Functional Limitations Reaching,Lifting,Housework,
== END 2023-02-01 17:35 | disposition home or self-care (01) ==
LOC: PT 09:00
PROVIDERS: PCP Family Medicine; Visit Provider Orthopaedic Surgery
DX: M75.101 Unspecified rotator cuff tear or rupture of right shoulder, not specified as traumatic (principal)
CPT/HCPCS: 97010; 97014; 97110; 97140; 97163; 97164; 97530; G0283

== ENCOUNTER → 2022-12-19 07:43 | Outpatient (CLI) | payer BC, SELFPAY ==
--- NOTE | 2022-12-19 07:44 | CA_ITS ---
FINAL REPORT TECHNIQUE: Grayscale, color Doppler and duplex Doppler ultrasound of the kidneys, aorta and renal arteries was performed. Multiple velocities were measured. CLINICAL HISTORY: HTN,OBESITY FINDINGS: Aorta velocity: 179 cm/sec Right kidney: 12.5 cm. No evidence of hydronephrosis or mass. Right intrarenal RI: 48 Right renal artery velocity: 78 cm/sec. Right RAR (Renal artery-Aortic Ratio): 0.57 Left Kidney: 11.5 cm. No evidence of hydronephrosis or mass. Left intrarenal RI: 33 Left renal artery velocity: 106 cm/sec. Left RAR (Renal Artery-Aortic Ratio): 0.6 IMPRESSION: No evidence of significant renal artery stenosis. CT angiogram or postcontrast MR angiogram would be more sensitive for evaluation of possible renal artery stenosis. Reviewed, Interpreted and Dictated by Andreas Cabrera III, MD Transcribed by Rianna Doyle Authenticated and [facility]
--- NOTE | 2022-12-19 08:41 | US_ITS ---
FINAL REPORT TECHNIQUE: Ultrasound images of the kidneys and bladder were obtained. CLINICAL HISTORY: G47.30 - Sleep apnea, unspecified hypertension FINDINGS: The right kidney measures 11.8 cm in length. It is normal in echogenicity. There is no hydronephrosis. The left kidney measures 10 cm in length. It is normal in echogenicity. There is no hydronephrosis. The urinary bladder is unremarkable. The liver is fatty infiltrated. Remaining solid abdominal organs are without acute abnormality. IMPRESSION: No hydronephrosis. Reviewed, Interpreted and Dictated by Andreas Cabrera III, MD Transcribed by Rianna Doyle Authenticated and [facility]
[2022-12-19 10:12] LABS: Basophils # 0.1 K/mm3 (0-0.2); Basophils % 0.8 % (0.1-2.0); Eosinophils # 0.3 K/mm3 (0.0-0.4); Eosinophils % 5.6 % (0.1-12.0); Hematocrit 45.6 % (42.0-52.0); Hemoglobin 15.2 g/dL (14.1-18.0); Lymphocytes # 1.8 K/mm3 (0.7-4.5); Lymphocytes % 31.4 % (10-50); Mean Corpuscular HGB Conc 33.4 g/dL (31.8-35.4); Mean Corpuscular Hemoglobin 30.2 pg (27.0-31.2); Mean Corpuscular Volume 90.5 fl (80-94); Mean Platelet Volume 7.7 fl (7.4-10.4); Monocytes # 0.4 K/mm3 (0.1-1.0); Monocytes % 7.4 % (1.7-9.3); Neutrophils # 3.1 K/mm3 (1.8-7.8); Neutrophils % 54.7 % (37.0-80.0); Platelet Count 305 K/mm3 (142-424); Red Blood Count 5.04 M/mm3 (4.60-6.20); Red Cell Distribution Width 13.3 % (11.5-17.5); White Blood Count 5.7 K/mm3 (4.8-10.8)
[2022-12-19 10:55] LABS: Alanine Aminotransferase 48 U/L (12-78); Albumin Level 4.3 g/dl (3.5-5.0); Alkaline Phosphatase 110 U/L (38-126); Anion Gap 14.7 mEq/L (5-15); Aspartate Amino Transferase 35 U/L (17-59); Bilirubin,Indirect 0.6 mg/dL (0.0-0.9); Bilirubin,Total 0.6 mg/dl (0.2-1.3); Bilirubin,Unconjugated 0.6 mg/dL (0.0-1.1); Blood Urea Nitrogen 15 mg/dl (9-20); Calcium 8.7 mg/dl (8.4-10.2); Carbon Dioxide 24 mmol/L (22.0-30.0); Chloride 107 mmol/L (98-107); Chol/HDL Ratio 4.9 (1-3.5); Cholesterol 137 mg/dl (140-200); Estimated Glomerular Filt Rate 91 ml/min (>60); GFR (African American) 110 ML/MIN (>60); Glucose 146 mg/dl (74-100); HDL Cholesterol 28 mg/dl (40-60); Magnesium 1.8 mg/dl (1.6-2.3); Potassium 4.7 mmoL/L (3.5-5.1); Sodium 141 mmol/L (136-145); Total Protein,Serum 7.2 g/dl (6.3-8.2); Triglycerides 81 mg/dl (30-150); VLDL Cholesterol 16 mg/dL (0-40)
[2022-12-19 11:10] LABS: Direct LDL Cholesterol 98.23 mg/dL (100-129)
[2022-12-19 11:18] LABS: Free T4 (Free Thyroxine) 1.04 ng/dl (0.78-2.19)
[2022-12-19 11:26] LABS: Thyroid Stimulating Hormone 0.97 uIU/mL (0.465-4.68)
[2022-12-21 18:26] LABS: Hemoglobin A1C 7.2 % (4.0-6.0)
== END ==
LOC: RT 07:44
PROVIDERS: PCP Family Medicine; Visit Provider Physician Assistant
DX: R06.00 Dyspnea, unspecified (principal); G47.30 Sleep apnea, unspecified; I10 Essential (primary) hypertension; I63.9 Cerebral infarction, unspecified; I11.9 Hypertensive heart disease without heart failure; E11.9 Type 2 diabetes mellitus without complications
CPT/HCPCS: 36415; 76770; 80048; 80061; 80076; 83036; 83735; 84439; 84443; 85025; 93306; 93976

== ENCOUNTER → 2023-05-26 09:05 | Outpatient (CLI) | payer BC, SELFPAY ==
[2023-05-26 16:50] LABS: Basophils # 0.1 K/mm3 (0-0.2); Basophils % 0.8 % (0.1-2.0); Eosinophils # 0.4 K/mm3 (0.0-0.4); Eosinophils % 4.9 % (0.1-12.0); Hematocrit 44.5 % (42.0-52.0); Hemoglobin 15.6 g/dL (14.1-18.0); Lymphocytes # 2.2 K/mm3 (0.7-4.5); Lymphocytes % 28.8 % (10-50); Mean Corpuscular HGB Conc 35.1 g/dL (31.8-35.4); Mean Corpuscular Hemoglobin 32.2 pg (27.0-31.2); Mean Corpuscular Volume 91.9 fl (80-94); Mean Platelet Volume 8.7 fl (7.4-10.4); Monocytes # 0.6 K/mm3 (0.1-1.0); Monocytes % 7.8 % (1.7-9.3); Neutrophils # 4.4 K/mm3 (1.8-7.8); Neutrophils % 57.7 % (37.0-80.0); Platelet Count 313 K/mm3 (142-424); Red Blood Count 4.84 M/mm3 (4.60-6.20); Red Cell Distribution Width 12.9 % (11.5-17.5); White Blood Count 7.7 K/mm3 (4.8-10.8)
[2023-05-26 16:56] LABS: Chol/HDL Ratio 4.4 (1-3.5); Cholesterol 114 mg/dl (140-200); HDL Cholesterol 26 mg/dl (40-60); Triglycerides 76 mg/dl (30-150); VLDL Cholesterol 15 mg/dL (0-40)
[2023-05-26 17:07] LABS: Direct LDL Cholesterol 75.66 mg/dL (100-129)
[2023-05-26 17:30] LABS: Thyroid Stimulating Hormone 0.69 uIU/mL (0.465-4.68)
[2023-05-26 17:33] LABS: Hemoglobin A1C 6.9 % (4.0-6.0)
[2023-05-26 17:44] LABS: Chloride 105 mmol/L (98-107)
[2023-05-26 17:45] LABS: Potassium 4.4 mmoL/L (3.5-5.1); Sodium 138 mmol/L (136-145)
[2023-05-26 17:47] LABS: Alanine Aminotransferase 36 U/L (12-78); Albumin Level 4.5 g/dl (3.5-5.0); Albumin/Globulin Ratio 1.5 (1.1-1.8); Alkaline Phosphatase 112 U/L (38-126); Anion Gap 15.4 mEq/L (5-15); Aspartate Amino Transferase 31 U/L (17-59); Bilirubin,Total 0.6 mg/dl (0.2-1.3); Blood Urea Nitrogen 12 mg/dl (9-20); Calcium 8.9 mg/dl (8.4-10.2); Carbon Dioxide 22 mmol/L (22.0-30.0); Estimated Glomerular Filt Rate 90 ml/min (>60); GFR (African American) 109 ML/MIN (>60); Glucose 131 mg/dl (74-100); Total Protein,Serum 7.5 g/dl (6.3-8.2)
== END ==
PROVIDERS: PCP Nurse Practitioner Family; Visit Provider Nurse Practitioner Family
DX: E11.9 Type 2 diabetes mellitus without complications (principal); E78.5 Hyperlipidemia, unspecified; I10 Essential (primary) hypertension; Z79.84 Long term (current) use of oral hypoglycemic drugs
CPT/HCPCS: 80053; 80061; 83036; 84443; 85025

== ENCOUNTER 2023-09-01 22:06 | Outpatient (CLI) | payer BC, SELFPAY ==
[2023-09-01 16:29] LABS: Hemoglobin A1C 6.2 % (4.0-6.0)
== END 2023-09-01 23:59 ==
LOC: LAB.DROPOF 22:06
PROVIDERS: PCP Nurse Practitioner Family; Visit Provider Nurse Practitioner Family
DX: E11.9 Type 2 diabetes mellitus without complications (principal); Z79.84 Long term (current) use of oral hypoglycemic drugs
CPT/HCPCS: 83036

== ENCOUNTER 2023-09-29 18:01 | Outpatient (CLI) | payer BC, SELFPAY ==
[2023-09-29 20:44] LABS: Creatinine,Urine Random 223 mg/dL (Not Estab.)
[2023-09-29 20:48] LABS: Microalbumin/Creatinine Ratio 4.2
== END 2023-09-29 23:59 ==
LOC: LAB.DROPOF 18:02
PROVIDERS: PCP Nurse Practitioner Family; Visit Provider Nurse Practitioner Family
DX: E11.9 Type 2 diabetes mellitus without complications (principal)
CPT/HCPCS: 82043; 82570

== ENCOUNTER 2024-11-25 08:43 | Outpatient (CLI) | payer BC, SELFPAY ==
[2024-11-25 16:51] LABS: Basophils # 0.1 K/mm3 (0-0.2); Basophils % 0.8 % (0.1-2.0); Eosinophils # 0.4 Kmm3 (0.0-0.4); Eosinophils % 5.9 % (0.1-12.0); Hematocrit 46.9 % (42.0-52.0); Hemoglobin 15.6 g/dL (14.1-18.0); Lymphocytes # 2.1 K/mm3 (0.7-4.5); Lymphocytes % 29.9 % (10-50); Mean Corpuscular HGB Conc 33.3 g/dL (31.8-35.4); Mean Corpuscular Hemoglobin 30.4 pg (27.0-31.2); Mean Corpuscular Volume 91.4 fl (80-94); Mean Platelet Volume 9.6 fl (7.4-10.4); Monocytes # 0.6 K/mm3 (0.1-1.0); Monocytes % 8.1 % (1.7-9.3); Neutrophils # 3.9 K/mm3 (1.8-7.8); Neutrophils % 55.2 % (37.0-80.0); Nucleated Red Blood Cells # 0 10^3/uL; Nucleated Red Blood Cells % 0 %; Platelet Count 308 K/mm3 (142-424); Red Blood Count 5.13 M/mm3 (4.60-6.20); Red Cell Distribution Width 12.7 % (11.5-17.5); Red Cell Distribution Width-SD 42.4 fL; White Blood Count 7.1 K/mm3 (4.8-10.8)
[2024-11-25 17:21] LABS: Alanine Aminotransferase 30 U/L (12-78); Albumin Level 4.3 g/dl (3.5-5.0); Albumin/Globulin Ratio 1.4 (1.1-1.8); Alkaline Phosphatase 96 U/L (38-126); Anion Gap 11.4 mEq/L (5-15); Aspartate Amino Transferase 22 U/L (17-59); Bilirubin,Total 0.5 mg/dl (0.2-1.3); Blood Urea Nitrogen 16 mg/dl (9-20); Calcium 9.1 mg/dl (8.4-10.2); Carbon Dioxide 24 mmol/L (22.0-30.0); Chloride 109 mmol/L (98-107); Chol/HDL Ratio 5.2 (1-3.5); Cholesterol 141 mg/dl (140-200); Estimated Glomerular Filt Rate 90 ml/min (>60); GFR (African American) 109 ML/MIN (>60); Globulin 3.1 g/dL (1.3-3.2); Glucose 165 mg/dl (74-100); HDL Cholesterol 27 mg/dl (40-60); Potassium 4.4 mmoL/L (3.5-5.1); Sodium 140 mmol/L (136-145); Total Protein,Serum 7.4 g/dl (6.3-8.2); Triglycerides 82 mg/dl (30-150); VLDL Cholesterol 16 mg/dL (0-40)
[2024-11-25 17:25] LABS: Hemoglobin A1C 6.4 % (4.0-6.0)
[2024-11-25 17:32] LABS: Direct LDL Cholesterol 88.38 mg/dL (100-129)
[2024-11-25 17:37] LABS: 25-OH Vitamin D, Total 64.9 ng/mL (30-100)
[2024-11-25 17:51] LABS: Thyroid Stimulating Hormone 0.71 uIU/mL (0.465-4.68)
[2024-11-25 18:03] LABS: HIV Combo NEGATIVE (Negative)
[2024-11-25 18:10] LABS: Hepatitis C Ab Qual. W/ RFX NEGATIVE (Negative)
== END 2024-11-25 23:59 | disposition home or self-care (01) ==
LOC: LAB.DROPOF 11-26 10:24
PROVIDERS: PCP Nurse Practitioner Family; Visit Provider Nurse Practitioner Family
DX: Z11.4 Encounter for screening for human immunodeficiency virus [HIV] (principal); Z11.59 Encounter for screening for other viral diseases; E11.9 Type 2 diabetes mellitus without complications; Z79.4 Long term (current) use of insulin; Z68.38 Body mass index [BMI] 38.0-38.9, adult; E66.9 Obesity, unspecified; Z79.84 Long term (current) use of oral hypoglycemic drugs; Z79.85 Long-term (current) use of injectable non-insulin antidiabetic drugs
CPT/HCPCS: 80053; 80061; 82306; 83036; 84443; 85025; 86803; 87389